=== PATIENT | female | born 1940 | race Caucasian/White ===

== ENCOUNTER → 2017-01-21 | Outpatient (CLI) | payer OTHER, MEDICAID ==
[2015-10-24 20:03] VITALS: BP 148/63
[2017-01-21 08:19] LABS: ALANINE AMINOTRANSFERASE 16 Units/L (12-78); ALBUMIN 3.5 g/dL (3.4-5.0); ALKALINE PHOSPHATASE 121 Units/L (46-116); ASPARTATE AMINO TRANSFERASE 15 Units/L (15-37); BLOOD UREA NITROGEN 23 mg/dL (7-18); CALCIUM 9.3 mg/dL (8.5-10.1); CARBON DIOXIDE 27.9 mmol/L (21-32); CHLORIDE 107 mmol/L (98-107); CREATININE 1.23 mg/dL (0.55-1.02); FREE T4 (FREE THYROXINE) 1.51 ng/dL (0.76-1.46); SODIUM 144 mmol/L (136-145); TOTAL PROTEIN 7.8 g/dL (6.4-8.2); TSH (3RD GENERATION) 0.221 uIU/mL (0.358-3.74); eGFR BLACK RACES 54 (>60); eGFR NON BLACK RACES 45 (>60)
[2017-01-21 08:26] LABS: COR NA(FOR HYPERGLY) 145 mmol/L (136-145); GLUCOSE 129 mg/dL (65-99)
[2017-01-21 08:33] LABS: BASOPHILS % (AUTO) 0.6 % (0.2-1.0); EOSINOPHILS # (AUTO) 0.3 x10^3/uL (0.0-0.2); EOSINOPHILS % (AUTO) 6.6 % (0.9-2.9); HEMATOCRIT 40.7 % (36.0-47.0); HEMOGLOBIN 13.1 g/dL (12.0-16.0); LYMPHOCYTES # (AUTO) 1.3 X10^3/uL (1.3-2.9); LYMPHOCYTES % (AUTO) 25.6 % (21.0-51.0); MEAN CORPUSCULAR HEMOGLOBIN 26.6 pg (27.0-34.0); MEAN CORPUSCULAR HGB CONC 32.2 g/dL (33.0-35.0); MEAN CORPUSCULAR VOLUME 82.6 fL (80.0-100.0); MEAN PLATELET VOLUME 8.2 fL (7.4-11.0); MONOCYTES # (AUTO) 0.4 x10^3/uL (0.3-0.8); MONOCYTES % (AUTO) 7.6 % (0.0-13.0); NEUTROPHILS # (AUTO) 3.1 x10^3/uL (2.2-4.8); NEUTROPHILS % (AUTO) 59.6 % (42.0-75.0); PLATELET COUNT 303 X10^3/uL (150.0-450.0); RED BLOOD COUNT 4.92 X10^6/uL (3.5-5.4); RED CELL DISTRIBUTION WIDTH 14.1 % (11.6-16.5); WHITE BLOOD COUNT 5.1 X10^3/uL (3.6-10.0)
[2017-01-25 10:12] LABS: T3 REVERSE 39.3 ng/dL (9.0-27.0)
== END ==
LOC: LAB 07:33
PROVIDERS: ATTEND Obstetrics & Gynecology Obstetrics
DX: R53.83 Other fatigue (principal); M81.0 Age-related osteoporosis without current pathological fracture
CPT/HCPCS: 36415; 80053; 82306; 82533; 82607; 82746; 84439; 84443; 84481; 84482; 85025

== ENCOUNTER → 2017-04-26 | Outpatient (CLI) | payer OTHER, MEDICAID ==
[2015-10-24 20:03] VITALS: BP 148/63
[2017-04-26 08:16] LABS: BASOPHILS % (AUTO) 0.8 % (0.2-1.0); EOSINOPHILS # (AUTO) 0.4 x10^3/uL (0.0-0.2); EOSINOPHILS % (AUTO) 7.8 % (0.9-2.9); HEMATOCRIT 40.2 % (36.0-47.0); HEMOGLOBIN 12.9 g/dL (12.0-16.0); LYMPHOCYTES # (AUTO) 1.6 X10^3/uL (1.3-2.9); LYMPHOCYTES % (AUTO) 29.2 % (21.0-51.0); MEAN CORPUSCULAR HEMOGLOBIN 25.5 pg (27.0-34.0); MEAN CORPUSCULAR HGB CONC 32.1 g/dL (33.0-35.0); MEAN CORPUSCULAR VOLUME 79.6 fL (80.0-100.0); MEAN PLATELET VOLUME 8.6 fL (7.4-11.0); MONOCYTES # (AUTO) 0.4 x10^3/uL (0.3-0.8); MONOCYTES % (AUTO) 7.9 % (0.0-13.0); NEUTROPHILS # (AUTO) 2.9 x10^3/uL (2.2-4.8); NEUTROPHILS % (AUTO) 54.3 % (42.0-75.0); PLATELET COUNT 260 X10^3/uL (150.0-450.0); RED BLOOD COUNT 5.04 X10^6/uL (3.5-5.4); RED CELL DISTRIBUTION WIDTH 15.1 % (11.6-16.5); WHITE BLOOD COUNT 5.3 X10^3/uL (3.6-10.0)
[2017-04-26 08:40] LABS: ALANINE AMINOTRANSFERASE 16 Units/L (12-78); ALBUMIN 3.7 g/dL (3.4-5.0); ALKALINE PHOSPHATASE 92 Units/L (46-116); ASPARTATE AMINO TRANSFERASE 16 Units/L (15-37); BLOOD UREA NITROGEN 26 mg/dL (7-18); CALCIUM 9.3 mg/dL (8.5-10.1); CARBON DIOXIDE 28.9 mmol/L (21-32); CHLORIDE 105 mmol/L (98-107); CHOL/HDL RATIO 3.7 (0.0-5.0); CHOLESTEROL 146 mg/dL (0-200); CREATININE 1.18 mg/dL (0.55-1.02); GLUCOSE 110 mg/dL (65-99); HDL CHOLESTEROL 40 mg/dL (40-60); SODIUM 142 mmol/L (136-145); TRIGLYCERIDES 161 mg/dL (0-150); TSH (3RD GENERATION) 0.505 uIU/mL (0.358-3.74); eGFR BLACK RACES 57 (>60); eGFR NON BLACK RACES 47 (>60)
[2017-04-26 08:53] LABS: PLATELET MORPHOLOGY COMMENT NORMAL (NORMAL)
[2017-04-26 09:56] LABS: HEMOGLOBIN A1C 5.7 % (4.5-6.2)
== END ==
LOC: LAB 07:23
PROVIDERS: ATTEND Obstetrics & Gynecology Obstetrics
DX: E03.8 Other specified hypothyroidism (principal); E11.9 Type 2 diabetes mellitus without complications; E55.9 Vitamin D deficiency, unspecified; R53.83 Other fatigue
CPT/HCPCS: 36415; 80053; 80061; 82306; 82533; 82607; 83036; 83525; 84443; 85025

== ENCOUNTER → 2017-07-08 | Outpatient (CLI) | payer OTHER, MEDICAID ==
[2015-10-24 20:03] VITALS: BP 148/63
--- NOTE | 2017-07-12 13:39 | MG ---
Examination: Bilateral screening mammogram. Clinical history: Routine screening. Technique: Digital CC and MLO views of both breasts were obtained. Computer aided detection analysis was performed and used during the interpretation. Comparison: 07/06/2016. Findings: The breasts are composed of scattered fibroglandular densities. Benign-appearing calcifications and v ascular calcifications are noted in the breasts bilaterally. A pacemaker/defibrillator device partial ly obscures visualization of the superior portion of the right breast. No suspicious mass, area of architectural distortion or suspicious cluster of microcalcifications is noted. Impression: 1. No mammographic evidence of malignancy. BI-RADS category 2-benign findings. Recommend routine annual screening mammogram. Diagnostic CAD was utilized and reviewed. * 0 (ZERO) - ASSESSMENT INCOMPLETE; ADDITIONAL IMAGING IS NEEDED. * 0C - ASSESSMENT INCOMPLETE, NEEDS ADDITIONAL IMAGING EVALUATION AND/OR PRIOR MAMMOGRAMS FOR COMPARI SON. * 1/1 (ONE) - NEGATIVE. * 2/II (TWO) - BENIGN FINDINGS. * 3/III (THREE) - PROBABLY BENIGN FINDING; SHORT INTERVAL FOLLOW-UP SUGGESTED. * 4/IV (FOUR) - SUSPICIOUS ABNORMALITY; BIOPSY SHOULD BE CONSIDERED. * 5/V - HIGHLY SUSPICIOUS OF MALIGNANCY; BIOPSY SHOULD BE PERFORMED. * 6/IV - KNOWN BIOPSY PROVEN MALIGNANCY-APPROPRIATE ACTION SHOULD BE TAKEN. A NEGATIVE X-RAY REPORT SHOULD NOT DELAY BIOPSY IF A DOMINANT OR CLINICALLY SUSPICIOUS MASS IS PRESENT; 4 TO 8 PERCENT OF CANCERS ARE NOT IDENTIFIED BY X-RAY. A NEGATIVE REPORT MAY REINFORCE THE CLINICAL IMPRESSION. ADENOSIS AND DENSE BREASTS MAY OBSCURE AN UNDERLYING NEOPLASM. Reported By:
== END ==
LOC: RAD 09:57
PROVIDERS: ATTEND Obstetrics & Gynecology Obstetrics
DX: Z12.31 Encounter for screening mammogram for malignant neoplasm of breast (principal)
CPT/HCPCS: 77067

== ENCOUNTER 2017-09-11 13:09 | Emergency (ER) | payer OTHER, MEDICAID ==
[2017-09-11 13:23] VITALS: BMI 23.1
--- NOTE | 2017-09-11 13:47 | DR.GENAD ---
HPI - PCP Primary Care Physician: marshal - HPI Comment HPI Comment: PATIENT HAD VERTIGO WITH THE ROOM SWINGING FOR FEW HOURS. PATIENT HAVE BEING DIZZINESS SINCE YESTERDAY. NO FEVER. SOME CHEST PAIN. HAVE A FIB BUT DENIES PALPITATION. - Complaint/Symptoms Chief Complaint Doctors Comments: INCREASING SOB FOR FEW DAYS AND DIZZINESS TODAY. Chief Complaint:: 'I feel short of breath, at this time I have been sine yesterday and very dizzy" Self Treatment fo Chief Complaint: blood sugar is 107 at this time - Nurses notes reviewed Nurses Notes Review: Yes - Source History Provided: Patient - Mode of Arrival Mode of Arrival: EMS - Timing Onset of Chief Complaint: 09/10/17 Came on: Suddenly - Duration Duration: Constant Duration: Days - Severity Severity: Moderate PMH - PMH Past Medical History: Yes Past Medical History: COPD, Coronary Artery Disease, Diabetes, Dyslipidemia, Hypertension, Hyperthyroidism Past Surgical History: Yes Surgical History: CABG/Valve Surgery, Cholecystectomy, Hysterectomy, Thyroidectomy Past Surgical History Comment: pacemaker - Family History History of Family Medical Conditions: Yes Family Medical History: Diabetes Mellitus, Coronary Artery Disease, Hypertension - Social History Have you used tobacco products in the last 12 months: No Type of Tobacco Use: None Does any household member use tobacco: No Alcohol Use: None Do you use any recreational Drugs:: No Lives With: Family Lives Where: Home - infectious screening In the last 2 months have you had wt loss of >10#?: NO Have you had fever, night sweats or hemotysis?: No Have you traveled outside the country in the last 6 months?: No Isolation: Standard ROS - Review of Systems Constitutional: Weakness, Fatigue. negative: Chills, Fever Eyes: negative: Eye Pain, Discharge ENTM: negative: Ear Pain, Nose Discharge, Nose Congestion, Throat Pain Respiratoy: Short of Breath, Wheezing. negative: Productive Cough, Non- Productive Cough, Hemoptysis Cardiovascular: Chest Pain. negative: Edema Gastrointestinal/Abdominal: No Symptoms Reported Genitourinary: No Symptoms Reported Neurological: No Symptoms Reported Musculoskeletal: Back Pain Integumentary: No Symptoms Reported Hematologic/Lymphatic: No Symptoms Reported All Other Systems: Reviewed and Negative PE - Vital Signs Vitals: Temperature 97 F Pulse Rate [Right Dorsalis 60 Pedis] Pulse Rate 72 Respiratory Rate 19 Blood Pressure [Left Arm] 148/66 Blood Pressure [Right Arm] 148/63 Blood Pressure 198/80 O2 Sat by Pulse Oximetry 96 - General Limitations: No Limitations General Appearance: Alert - Head Head Exam: Normal Inspection - Eyes Eye exam: Normal Appearance - ENT ENT Exam: Normal External Ear Exam External Ear Exam: Normal External Inspection TM/Canal Exam: Bilateral Normal Nose Exam: Normal Nose Exam Mouth Exam: Normal Inspection Throat Exam: Normal Inspection - Neck Neck Exam: Trachea Midline - Chest Chest Inspection: Symmetric Chest Wall Rise - Respiratory Respiratory Exam: Normal Lung Sounds Bilat Respiratory Exam: Bilateral Wheezing, Bilateral Rhonchi, Upper Rhonchi, Lower Wheezing, Lower Rhonchi - Cardiovascular Cardiovascular Exam: Irregular Rhythm - Abdominal Exam Abdominal Exam: Normal Bowel Sounds, Soft. negative: Tenderness - Extremities Extremities Exam: Normal Inspection - Back Back Exam: Normal Inspection - Neurologic Neurological Exam: Alert, Oriented X3 - Psychiatric Psychiatric Exam: Normal Affect, Normal Mood - Skin Skin Exam: Normal Color MDM - Additional Information Additional Information Obtained From: Family - Differential Diagnosis Differential Diagnosis: COPD, CHF OK, PNEMONIA, VERTIGO Course - Treatment Treatment: SEE ORDERS - Consultation Consultation Comments: PATIENT ACCEPTED FOR TRANSFER TO [facility] BY DR. NOVOA. - Education/Counseling Education/Counseling: Patient, Family, Education Educated On: Diagnosis ROR - Labs Reviewed Laboratory Results Reviewed?: Yes Result Diagrams: 09/11/17 14:00 09/11/17 14:00 Laboratory: WBC 5.8 X10^3/uL (3.6-10.0) 09/11/17 14:00 RBC 5.16 X10^6/uL (3.5-5.4) 09/11/17 14:00 Hgb 12.5 g/dL (12.0-16.0) 09/11/17 14:00 Hct 39.1 % (36.0-47.0) 09/11/17 14:00 MCV 75.9 fL (80.0-100.0) L 09/11/17 14:00 MCH 24.3 pg (27.0-34.0) L 09/11/17 14:00 MCHC 32.0 g/dL (33.0-35.0) L 09/11/17 14:00 RDW 16.0 % (11.6-16.5) 09/11/17 14:00 Plt Count 264 X10^3/uL (150.0-450.0) 09/11/17 14:00 MPV 8.1 fL (7.4-11.0) 09/11/17 14:00 Neut % 64.9 % (42.0-75.0) 09/11/17 14:00 Lymph % 21.4 % (21.0-51.0) 09/11/17 14:00 [place] % 7.4 % (0.0-13.0) 09/11/17 14:00 Eos % 5.2 % (0.9-2.9) H 09/11/17 14:00 Baso % 1.1 % (0.2-1.0) H 09/11/17 14:00 Neut # 3.8 x10^3/uL (2.2-4.8) 09/11/17 14:00 Lymph # 1.2 X10^3/uL (1.3-2.9) L 09/11/17 14:00 [place] # 0.4 x10^3/uL (0.3-0.8) 09/11/17 14:00 Eos # 0.3 x10^3/uL (0.0-0.2) H 09/11/17 14:00 Baso # 0.1 X10^3/uL (0.0-0.1) 09/11/17 14:00 Absolute Nucleated RBC 0.0 /100WBC 09/11/17 14:00 Sodium 141 mmol/L (136-145) 09/11/17 14:00 Corrected Sodium 142 mmol/L (136-145) 09/11/17 14:00 Potassium 4.0 mmol/L (3.5-5.1) 09/11/17 14:00 Chloride 106 mmol/L (98-107) 09/11/17 14:00 Carbon Dioxide 26.9 mmol/L (21-32) 09/11/17 14:00 BUN 19 mg/dL (7-18) H 09/11/17 14:00 Creatinine 0.95 mg/dL (0.55-1.02) 09/11/17 14:00 Est GFR (MDRD) Af Amer > 60 (>60) 09/11/17 14:00 Est GFR (MDRD) Non-Af > 60 (>60) 09/11/17 14:00 Glucose 122 mg/dL (65-99) H 09/11/17 14:00 Calcium 9.4 mg/dL (8.5-10.1) 09/11/17 14:00 Corrected Calcium TNP 09/11/17 14:00 Total Bilirubin 0.30 mg/dL (0.2-1.0) 09/11/17 14:00 AST 16 Units/L (15-37) 09/11/17 14:00 ALT 16 Units/L (12-78) 09/11/17 14:00 Alkaline Phosphatase 93 Units/L (46-116) 09/11/17 14:00 Creatine Kinase 36 Units/L (26-192) 09/11/17 16:07 CK-MB (CK-2) < 1.0 ng/mL (0-4.0) 09/11/17 16:07 CK/CKMB % Calc 2.8 % (<4) 09/11/17 16:07 Troponin I 0.07 ng/mL (0-1.5) 09/11/17 16:07 B-Natriuretic Peptide 513 pg/mL (0-79) H* 09/11/17 14:00 Total Protein 7.8 g/dL (6.4-8.2) 09/11/17 14:00 Albumin 3.6 g/dL (3.4-5.0) 09/11/17 14:00 Globulin 4.2 g/dL (2.5-4.5) 09/11/17 14:00 Albumin/Globulin Ratio 0.9 Ratio (1.1-2.1) L 09/11/17 14:00 Specimen Type Clean catch urine 09/11/17 14:42 Urine Color Yellow (YELLOW) 09/11/17 14:42 Urine Appearance Clear (CLEAR) 09/11/17 14:42 Urine pH 7.0 (5.0 - 8.0) 09/11/17 14:42 Ur Specific [place] 1.010 (1.000-1.030) 09/11/17 14:42 Urine Protein 3+ (NEGATIVE) 09/11/17 14:42 Urine Glucose (UA) Negative (NEGATIVE) 09/11/17 14:42 Urine Ketones Negative (NEGATIVE) 09/11/17 14:42 Urine Occult Blood Negative (NEGATIVE) 09/11/17 14:42 Urine Nitrite Negative (NEGATIVE) 09/11/17 14:42 Urine Bilirubin Negative (NEGATIVE) 09/11/17 14:42 Urine Urobilinogen Normal (NORMAL) 09/11/17 14:42 Ur Leukocyte Esterase Negative (NEGATIVE) 09/11/17 14:42 Urine RBC 0-2 /HPF (NEGATIVE) 09/11/17 14:42 Urine WBC 0-2 /HPF (NEGATIVE) 09/11/17 14:42 Ur Squamous Epith Cells Rare /HPF (NEGATIVE) 09/11/17 14:42 Urine Bacteria Trace /HPF (NEGATIVE) 09/11/17 14:42 Ur Culture Indicated? No/not indicated 09/11/17 14:42 - XRAY XRAY Interpreted by: Radiologist XRAY Findings: REPORT DISCUSS WITH PATIENT. 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
--- NOTE | 2017-09-11 14:14 | RAD ---
Examination: Portable AP chest History: SOB Comparison reference to 07/2016 Findings: Continued normal heart size with sternal wires/sternotomy. No consolidation, pneumothorax o r large pleural effusion. Diffuse interstitial increase is noted in each lung, relatively unchanged. Impression: Considering technical difference, no change. Status post CABG. Suspect bilateral chronic interstitial scarring. Reported By:
[2017-09-11 14:15] LABS: BASOPHILS # (AUTO) 0.1 X10^3/uL (0.0-0.1); BASOPHILS % (AUTO) 1.1 % (0.2-1.0); EOSINOPHILS # (AUTO) 0.3 x10^3/uL (0.0-0.2); EOSINOPHILS % (AUTO) 5.2 % (0.9-2.9); HEMATOCRIT 39.1 % (36.0-47.0); HEMOGLOBIN 12.5 g/dL (12.0-16.0); LYMPHOCYTES # (AUTO) 1.2 X10^3/uL (1.3-2.9); LYMPHOCYTES % (AUTO) 21.4 % (21.0-51.0); MEAN CORPUSCULAR HEMOGLOBIN 24.3 pg (27.0-34.0); MEAN CORPUSCULAR VOLUME 75.9 fL (80.0-100.0); MEAN PLATELET VOLUME 8.1 fL (7.4-11.0); MONOCYTES # (AUTO) 0.4 x10^3/uL (0.3-0.8); MONOCYTES % (AUTO) 7.4 % (0.0-13.0); NEUTROPHILS # (AUTO) 3.8 x10^3/uL (2.2-4.8); NEUTROPHILS % (AUTO) 64.9 % (42.0-75.0); PLATELET COUNT 264 X10^3/uL (150.0-450.0); RED BLOOD COUNT 5.16 X10^6/uL (3.5-5.4); WHITE BLOOD COUNT 5.8 X10^3/uL (3.6-10.0)
--- NOTE | 2017-09-11 14:38 | CT ---
HISTORY: Dizziness Study: CT head without contrast Comparison: 11/05/2015 Technique: Axial noncontrast images with coronal and sagittal reformats. Dose reduction procedures we re used with mA/kv adjusted for body size. Findings: The ventricles are normal in size shape and position. There is decreased attenuation in the periventr icular white matter suggestive of diffuse small vessel vascular disease. Age-related cortical atrophy is present. There is an old lacunar infarct in the left thalamus. There is an old lacunar infarct in the left romie. There is an old left occipital infarct present. There is no definite evidence for rec ent CVA, hemorrhage, mass lesion, or extra-axial fluid collection. If acute CVA is a strong clinical consideration MRI with diffusion imaging is recommended for further evaluation. IMPRESSION: No definite acute intracranial abnormality Diffuse small vessel vascular disease Age related cortical atrophy Old CVAs as described Reported By:
[2017-09-11 14:44] LABS: BLOOD UREA NITROGEN 19 mg/dL (7-18); CALCIUM 9.4 mg/dL (8.5-10.1); CARBON DIOXIDE 26.9 mmol/L (21-32); CHLORIDE 106 mmol/L (98-107); COR NA(FOR HYPERGLY) 142 mmol/L (136-145); CREATININE 0.95 mg/dL (0.55-1.02); SODIUM 141 mmol/L (136-145); TROPONIN I 0.06 ng/mL (0-1.5); eGFR BLACK RACES > 60 (>60); eGFR NON BLACK RACES > 60 (>60)
[2017-09-11 14:48] LABS: BILIRUBIN,URINE NEGATIVE (NEGATIVE); BLOOD/HEMOGLOBIN,URINE NEGATIVE (NEGATIVE); GLUCOSE, URINE NEGATIVE (NEGATIVE); KETONES,URINE NEGATIVE (NEGATIVE); LEUKOCYTE ESTERASE ,URINE NEGATIVE (NEGATIVE); NITRITES,URINE NEGATIVE (NEGATIVE); PROTEIN,URINE 3+ (NEGATIVE); UROBILINOGEN,URINE NORMAL (NORMAL)
[2017-09-11 14:51] LABS: ALANINE AMINOTRANSFERASE 16 Units/L (12-78); ALBUMIN 3.6 g/dL (3.4-5.0); ALKALINE PHOSPHATASE 93 Units/L (46-116); ASPARTATE AMINO TRANSFERASE 16 Units/L (15-37); CKMB % 2.6 % (<4); CREATINE KINASE 39 Units/L (26-192); CREATINE KINASE MB < 1.0 ng/mL (0-4.0); TOTAL PROTEIN 7.8 g/dL (6.4-8.2)
[2017-09-11 15:00] LABS: APPEARANCE,URINE CLEAR (CLEAR); BACTERIA,URINE TRACE /HPF (NEGATIVE); COLOR,URINE YELLOW (YELLOW); RBC,URINE 0-2 /HPF (NEGATIVE); SQUAMOUS EPITHELIAL CELL,UR RARE /HPF (NEGATIVE)
[2017-09-11 15:24] LABS: B-TYPE NATRIURETIC PEPTIDE 513 pg/mL (0-79)
[2017-09-11] MEDS ORDERED: ANTIVERT TAB 25 MG PO ONE (15:49)
[2017-09-11] MEDS ORDERED: ANTIVERT TAB 25 MG ONE (15:56)
[2017-09-11 16:27] VITALS: BP 148/66
[2017-09-11 16:51] LABS: CREATINE KINASE 36 Units/L (26-192); CREATINE KINASE MB < 1.0 ng/mL (0-4.0); TROPONIN I 0.07 ng/mL (0-1.5)
[2017-09-11 16:53] LABS: CKMB % 2.8 % (<4)
== END 2017-09-11 19:02 | disposition short-term general hospital (02) ==
LOC: ER 13:13
DX: J40 Bronchitis, not specified as acute or chronic (principal); R42 Dizziness and giddiness; R74.9 Abnormal serum enzyme level, unspecified; I50.41 Acute combined systolic (congestive) and diastolic (congestive) heart failure; R07.2 Precordial pain; G31.9 Degenerative disease of nervous system, unspecified
CPT/HCPCS: 36415; 70450; 71010; 80053; 81001; 82550; 82553; 83880; 84484; 85025; 93005; 93010; 96365; 99285; A4222

== ENCOUNTER → 2017-10-08 | Outpatient (CLI) | payer OTHER, MEDICAID ==
[2017-09-11 16:27] VITALS: BP 148/66
[2017-10-08 10:32] LABS: BASOPHILS # (AUTO) 0.1 X10^3/uL (0.0-0.1); BASOPHILS % (AUTO) 1.2 % (0.2-1.0); EOSINOPHILS # (AUTO) 0.4 x10^3/uL (0.0-0.2); EOSINOPHILS % (AUTO) 8.5 % (0.9-2.9); HEMATOCRIT 40.6 % (36.0-47.0); HEMOGLOBIN 12.8 g/dL (12.0-16.0); LYMPHOCYTES # (AUTO) 1.4 X10^3/uL (1.3-2.9); LYMPHOCYTES % (AUTO) 30.5 % (21.0-51.0); MEAN CORPUSCULAR HEMOGLOBIN 24.4 pg (27.0-34.0); MEAN CORPUSCULAR HGB CONC 31.6 g/dL (33.0-35.0); MEAN CORPUSCULAR VOLUME 77.2 fL (80.0-100.0); MEAN PLATELET VOLUME 7.8 fL (7.4-11.0); MONOCYTES # (AUTO) 0.4 x10^3/uL (0.3-0.8); NEUTROPHILS # (AUTO) 2.3 x10^3/uL (2.2-4.8); NEUTROPHILS % (AUTO) 51.8 % (42.0-75.0); PLATELET COUNT 267 X10^3/uL (150.0-450.0); RED BLOOD COUNT 5.25 X10^6/uL (3.5-5.4); RED CELL DISTRIBUTION WIDTH 16.2 % (11.6-16.5); WHITE BLOOD COUNT 4.5 X10^3/uL (3.6-10.0)
[2017-10-08 10:49] LABS: ANISOCYTOSIS SLIGHT; PLATELET MORPHOLOGY COMMENT NORMAL (NORMAL)
[2017-10-08 10:50] LABS: HYPOCHROMASIA SLIGHT; MICROCYTOSIS SLIGHT
[2017-10-08 10:52] LABS: ALANINE AMINOTRANSFERASE 18 Units/L (12-78); ALBUMIN 3.5 g/dL (3.4-5.0); ALKALINE PHOSPHATASE 88 Units/L (46-116); ASPARTATE AMINO TRANSFERASE 17 Units/L (15-37); BILIRUBIN,DIRECT 0.09 mg/dL (0-0.2); BLOOD UREA NITROGEN 19 mg/dL (7-18); CALCIUM 9.1 mg/dL (8.5-10.1); CARBON DIOXIDE 26.4 mmol/L (21-32); CHLORIDE 106 mmol/L (98-107); CHOLESTEROL 147 mg/dL (0-200); COR NA(FOR HYPERGLY) 143 mmol/L (136-145); CREATININE 0.98 mg/dL (0.55-1.02); HDL CHOLESTEROL 37 mg/dL (40-60); SODIUM 142 mmol/L (136-145); TOTAL PROTEIN 7.8 g/dL (6.4-8.2); TRIGLYCERIDES 198 mg/dL (0-150); eGFR BLACK RACES > 60 (>60); eGFR NON BLACK RACES 58 (>60)
== END ==
LOC: LAB 10:11
PROVIDERS: ATTEND Physician Assistant
DX: I25.10 Atherosclerotic heart disease of native coronary artery without angina pectoris (principal); E78.4 Other hyperlipidemia
CPT/HCPCS: 36415; 80048; 80061; 80076; 85025

== ENCOUNTER 2020-09-09 14:51 | Inpatient (IN) ==
[2020-09-09] MEDS ORDERED: DECADRON INJ IVP ONE (15:02)
--- NOTE | 2020-09-09 15:19 | DR.SOBA ---
HPI <Jay Krishnamurthy - Last Filed: 09/11/20 08:28> Time Seen Time Seen by Provider: 09/09/20 15:02 Complaints Chief Complaint Doctors Comments: pt in resp failure gasping for breath pulse ox 80's she is full code. Exposed to COVID in family getting sick since 09/03/2020 and steadily getting worse Marked dyspnea at rest now sx increase with exertion decrease slightly with rest PMH <Jay Krishnamurthy - Last Filed: 09/11/20 08:28> PMH Past Medical History: Arthritis, Coronary Artery Disease, Diabetes, Dyslipidemia, Hypothyroidism and IA Past Surgical History: Yes Surgical History: Angioplasty/Stents, CABG/Valve Surgery, Cholecystectomy, Hysterectomy and Thyroidectomy Family History Family Medical History: Cancer, [place], Coronary Artery Disease and Hypertension Social History Do you use any recreational Drugs:: No ROS <Jay Krishnamurthy - Last Filed: 09/11/20 08:28> Review of Systems Constitutional: Chills, Diaphoresis, Fever, Malaise, Weakness, Irritable, Fatigue, Loss of Appetite and Other ENTM: No Symptoms Reported Respiratoy: Non-Productive Cough, Short of Breath and Wheezing Cardiovascular: No Symptoms Reported Gastrointestinal/Abdominal: No Symptoms Reported Genitourinary: No Symptoms Reported Neurological: No Symptoms Reported Musculoskeletal: No Symptoms Reported Integumentary: No Symptoms Reported Hematologic/Lymphatic: No Symptoms Reported Endocrine: No Symptoms Reported Psychiatric: No Symptoms Reported All Other Systems: Reviewed and Negative (it should be noted pt with limitesd ability to verbalize secnodary to markked Dyspnea ) PE <Jay Krishnamurthy - Last Filed: 09/11/20 08:28> Vital Signs Vitals: Temperature 97.6 F Pulse Rate 69 Respiratory Rate 31 Blood Pressure [Left Arm] 98/65 Blood Pressure 111/62 O2 Sat by Pulse Oximetry 100 General Limitations: Other (pt with resp failure gasping for breath makes vocalization limited ) General Appearance: Alert and In Distress (respiratory failure) Head Head Exam: Normal Inspection, Atraumatic and Normocephalic Eyes Eye exam: Normal Appearance, PERRL and EOMI ENT ENT Exam: Normal Exam, Normal Oropharynx and Normal External Ear Exam Neck Neck Exam: Normal Inspection, Full ROM and Trachea Midline Chest Chest Inspection: Normal Inspection and Symmetric Chest Wall Rise; negative Tenderness Respiratory Respiratory Exam: Accessory Muscle Use and Other Respiratory Exam: Bilateral: Rhonchi and Bilateral: Decreased Breath Sounds Cardiovascular Cardiovascular Exam: Tachycardia and Irregular Rhythm Abdominal Exam Abdominal Exam: Normal Inspection and Soft; negative Distention and Tenderness Extremities Extremities Exam: Normal Inspection, Full ROM and Normal Capillary Refill; negative Tenderness, Edema and Other Back Back Exam: Normal Inspection and Full ROM; negative Tenderness Neurologic Neurological Exam: Alert Psychiatric Psychiatric Exam: Other (with resp distress appears anxious but not inappropriate ) Skin Skin Exam: Warm, Dry, Intact and Normal Color <Flakita Lozano - Last Filed: 09/10/20 00:47> Vital Signs Vitals: Temperature 97.6 F Pulse Rate 69 Respiratory Rate 31 Blood Pressure [Left Arm] 98/65 Blood Pressure 111/62 O2 Sat by Pulse Oximetry 100 COURSE <Jay Krishnamurthy - Last Filed: 09/11/20 08:28> Reevaluation 1st: Improved (1635h pt on bipap feels much better covid neg +d-dimer but on eliquis so no lovenox will gove lasix 2nd to Chest XR suggesting CHF ) <Flakita Lozano - Last Filed: 09/10/20 00:47> Treatment Treatment: [address] Krishnamurthy; improved on bipap; repeat abg warrants reduction of oxygen 2245 pt doing well with NC Consultation Consultation Comments: Dr Fonseca notified of admission by Dr Krishnamurthy ROR <Jay Krishnamurthy - Last Filed: 09/11/20 08:28> Labs Reviewed Result Diagrams: 09/11/20 05:18 09/11/20 05:18 Laboratory: WBC 11.0 X10^3/uL (3.6-10.0) H 09/09/20 15:25 RBC 5.25 X10^6/uL (3.5-5.4) 09/09/20 15:25 Hgb 15.3 g/dL (12.0-16.0) 09/09/20 15:25 Hct 47.5 % (36.0-47.0) H 09/09/20 15:25 MCV 90.5 fL (80.0-100.0) 09/09/20 15:25 MCH 29.1 pg (27.0-34.0) 09/09/20 15:25 MCHC 32.2 g/dL (33.0-35.0) L 09/09/20 15:25 RDW 15.2 % (11.6-16.5) 09/09/20 15:25 Plt Count 340 X10^3/uL (150.0-450.0) 09/09/20 15:25 MPV 9.7 fL (7.4-11.0) 09/09/20 15:25 Neut % (Auto) 65.3 % (42.0-75.0) 09/09/20 15:25 Lymph % (Auto) 24.4 % (21.0-51.0) 09/09/20 15:25 [place] % (Auto) 7.5 % (0.0-13.0) 09/09/20 15:25 Eos % (Auto) 2.0 % (0.9-2.9) 09/09/20 15:25 Baso % (Auto) 0.8 % (0.2-1.0) 09/09/20 15:25 Neut # (Auto) 7.2 x10^3/uL (2.2-4.8) H 09/09/20 15:25 Lymph # (Auto) 2.7 X10^3/uL (1.3-2.9) 09/09/20 15:25 [place] # (Auto) 0.8 x10^3/uL (0.3-0.8) 09/09/20 15:25 Eos # (Auto) 0.2 x10^3/uL (0.0-0.2) 09/09/20 15:25 Baso # (Auto) 0.1 X10^3/uL (0.0-0.1) 09/09/20 15:25 Absolute Nucleated RBC 0.1 /100WBC 09/09/20 15:25 PT 15.4 SECONDS (11.8-14.3) 09/09/20 15:25 INR Target Range - 09/09/20 15:25 INR 1.26 (0.8-1.3) 09/09/20 15:25 APTT 42.2 SECONDS (22.9-36.5) H 09/09/20 15:25 PTT Comment - 09/09/20 15:25 D-Dimer 0.58 ug/ml (0.0-0.57) H* 09/09/20 15:25 Sample Site Lrad 09/09/20 20:21 ABG pH 7.400 (7.35-7.45) 09/09/20 20:21 ABG pCO2 44.0 mmHg (35.0-45.0) 09/09/20 20:21 ABG pO2 464.0 mmHg (80.0-100.0) H 09/09/20 20:21 ABG HCO3 27.3 mmol/L (22-26) H 09/09/20 20:21 ABG O2 Saturation 100.0 % (90-100) 09/09/20 20:21 ABG Base Excess 2.1 mmol/L (-2.0-2.0) H 09/09/20 20:21 Rodrigo Test Pos 09/09/20 20:21 A-a Gradient 194.0 mmHg 09/09/20 20:21 FiO2 100.0 09/09/20 20:21 Blood Gas Comments Zachery abg well-mtf 09/09/20 20:21 Sodium 139 mmol/L (136-145) 09/09/20 15:25 Corrected Sodium 144 mmol/L (136-145) 09/09/20 15:25 Potassium 5.0 mmol/L (3.5-5.1) 09/09/20 15:25 Chloride 101 mmol/L (98-107) 09/09/20 15:25 Carbon Dioxide 26.4 mmol/L (21-32) 09/09/20 15:25 BUN 22 mg/dL (7-18) H 09/09/20 15:25 Creatinine 1.60 mg/dL (0.55-1.02) H 09/09/20 15:25 Est GFR (MDRD) Af Amer 40 (>60) L 09/09/20 15:25 Est GFR (MDRD) Non-Af 33 (>60) L 09/09/20 15:25 Glucose 290 mg/dL (65-99) H 09/09/20 15:25 Calcium 10.0 mg/dL (8.5-10.1) 09/09/20 15:25 Corrected Calcium 10.6 mg/dL (8.5-10.1) H 09/09/20 15:25 Magnesium 1.5 mg/dL (1.7-2.9) L 09/09/20 15:25 Total Bilirubin 1.00 mg/dL (0.2-1.0) 09/09/20 15:25 AST 57 Units/L (15-37) H 09/09/20 15:25 ALT 45 Units/L (12-78) 09/09/20 15:25 Alkaline Phosphatase 145 Units/L (46-116) H 09/09/20 15:25 Creatine Kinase 37 Units/L (26-192) 09/09/20 15:25 CK-MB (CK-2) < 1.0 ng/mL (0-4.0) 09/09/20 15:25 CK/CKMB % Calc 2.7 % (<4) 09/09/20 15:25 Troponin I 0.08 ng/mL (0-1.5) 09/09/20 15:25 B-Natriuretic Peptide 1570 pg/mL (0-79) H* 09/09/20 15:25 Total Protein 7.8 g/dL (6.4-8.2) 09/09/20 15:25 Albumin 3.3 g/dL (3.4-5.0) L 09/09/20 15:25 Globulin 4.5 g/dL (2.5-4.5) 09/09/20 15:25 Albumin/Globulin Ratio 0.7 Ratio (1.1-2.1) L 09/09/20 15:25 Specimen Type Catherized urine 09/09/20 15:35 Urine Color Yellow (YELLOW) 09/09/20 15:35 Urine Appearance Clear (CLEAR) 09/09/20 15:35 Urine pH 5.0 (5.0 - 8.0) 09/09/20 15:35 Ur Specific [place] 1.015 (1.000-1.030) 09/09/20 15:35 Urine Protein Negative (NEGATIVE) 09/09/20 15:35 Urine Glucose (UA) Negative (NEGATIVE) 09/09/20 15:35 Urine Ketones Negative (NEGATIVE) 09/09/20 15:35 Urine Occult Blood 1+ (NEGATIVE) 09/09/20 15:35 Urine Nitrite Negative (NEGATIVE) 09/09/20 15:35 Urine Bilirubin Negative (NEGATIVE) 09/09/20 15:35 Urine Urobilinogen Normal (NORMAL) 09/09/20 15:35 Ur Leukocyte Esterase Negative (NEGATIVE) 09/09/20 15:35 Urine RBC 0-2 /HPF (0-3) 09/09/20 15:35 Urine WBC 0-2 /HPF (0-5) 09/09/20 15:35 Ur Squamous Epith Cells Moderate /HPF (NEGATIVE) 09/09/20 15:35 Urine Bacteria Trace /HPF (NEGATIVE) 09/09/20 15:35 Ur Culture Indicated? No/not indicated 09/09/20 15:35 SARS CoV-2 RNA Rapid WEI Negative (NEGATIVE) 09/09/20 15:28 <Flakita Lozano - Last Filed: 09/10/20 00:47> Labs Reviewed Laboratory Results Reviewed?: Yes Laboratory: WBC 11.0 X10^3/uL (3.6-10.0) H 09/09/20 15:25 RBC 5.25 X10^6/uL (3.5-5.4) 09/09/20 15:25 Hgb 15.3 g/dL (12.0-16.0) 09/09/20 15:25 Hct 47.5 % (36.0-47.0) H 09/09/20 15:25 MCV 90.5 fL (80.0-100.0) 09/09/20 15:25 MCH 29.1 pg (27.0-34.0) 09/09/20 15:25 MCHC 32.2 g/dL (33.0-35.0) L 09/09/20 15:25 RDW 15.2 % (11.6-16.5) 09/09/20 15:25 Plt Count 340 X10^3/uL (150.0-450.0) 09/09/20 15:25 MPV 9.7 fL (7.4-11.0) 09/09/20 15:25 Neut % (Auto) 65.3 % (42.0-75.0) 09/09/20 15:25 Lymph % (Auto) 24.4 % (21.0-51.0) 09/09/20 15:25 [place] % (Auto) 7.5 % (0.0-13.0) 09/09/20 15:25 Eos % (Auto) 2.0 % (0.9-2.9) 09/09/20 15:25 Baso % (Auto) 0.8 % (0.2-1.0) 09/09/20 15:25 Neut # (Auto) 7.2 x10^3/uL (2.2-4.8) H 09/09/20 15:25 Lymph # (Auto) 2.7 X10^3/uL (1.3-2.9) 09/09/20 15:25 [place] # (Auto) 0.8 x10^3/uL (0.3-0.8) 09/09/20 15:25 Eos # (Auto) 0.2 x10^3/uL (0.0-0.2) 09/09/20 15:25 Baso # (Auto) 0.1 X10^3/uL (0.0-0.1) 09/09/20 15:25 Absolute Nucleated RBC 0.1 /100WBC 09/09/20 15:25 PT 15.4 SECONDS (11.8-14.3) 09/09/20 15:25 INR Target Range - 09/09/20 15:25 INR 1.26 (0.8-1.3) 09/09/20 15:25 APTT 42.2 SECONDS (22.9-36.5) H 09/09/20 15:25 PTT Comment - 09/09/20 15:25 D-Dimer 0.58 ug/ml (0.0-0.57) H* 09/09/20 15:25 Sample Site Lrad 09/09/20 20:21 ABG pH 7.400 (7.35-7.45) 09/09/20 20:21 ABG pCO2 44.0 mmHg (35.0-45.0) 09/09/20 20:21 ABG pO2 464.0 mmHg (80.0-100.0) H 09/09/20 20:21 ABG HCO3 27.3 mmol/L (22-26) H 09/09/20 20:21 ABG O2 Saturation 100.0 % (90-100) 09/09/20 20:21 ABG Base Excess 2.1 mmol/L (-2.0-2.0) H 09/09/20 20:21 Rodrigo Test Pos 09/09/20 20:21 A-a Gradient 194.0 mmHg 09/09/20 20:21 FiO2 100.0 09/09/20 20:21 Blood Gas Comments Zachery abg well-mtf 09/09/20 20:21 Sodium 139 mmol/L (136-145) 09/09/20 15:25 Corrected Sodium 144 mmol/L (136-145) 09/09/20 15:25 Potassium 5.0 mmol/L (3.5-5.1) 09/09/20 15:25 Chloride 101 mmol/L (98-107) 09/09/20 15:25 Carbon Dioxide 26.4 mmol/L (21-32) 09/09/20 15:25 BUN 22 mg/dL (7-18) H 09/09/20 15:25 Creatinine 1.60 mg/dL (0.55-1.02) H 09/09/20 15:25 Est GFR (MDRD) Af Amer 40 (>60) L 09/09/20 15:25 Est GFR (MDRD) Non-Af 33 (>60) L 09/09/20 15:25 Glucose 290 mg/dL (65-99) H 09/09/20 15:25 Calcium 10.0 mg/dL (8.5-10.1) 09/09/20 15:25 Corrected Calcium 10.6 mg/dL (8.5-10.1) H 09/09/20 15:25 Magnesium 1.5 mg/dL (1.7-2.9) L 09/09/20 15:25 Total Bilirubin 1.00 mg/dL (0.2-1.0) 09/09/20 15:25 AST 57 Units/L (15-37) H 09/09/20 15:25 ALT 45 Units/L (12-78) 09/09/20 15:25 Alkaline Phosphatase 145 Units/L (46-116) H 09/09/20 15:25 Creatine Kinase 37 Units/L (26-192) 09/09/20 15:25 CK-MB (CK-2) < 1.0 ng/mL (0-4.0) 09/09/20 15:25 CK/CKMB % Calc 2.7 % (<4) 09/09/20 15:25 Troponin I 0.08 ng/mL (0-1.5) 09/09/20 15:25 B-Natriuretic Peptide 1570 pg/mL (0-79) H* 09/09/20 15:25 Total Protein 7.8 g/dL (6.4-8.2) 09/09/20 15:25 Albumin 3.3 g/dL (3.4-5.0) L 09/09/20 15:25 Globulin 4.5 g/dL (2.5-4.5) 09/09/20 15:25 Albumin/Globulin Ratio 0.7 Ratio (1.1-2.1) L 09/09/20 15:25 Specimen Type Catherized urine 09/09/20 15:35 Urine Color Yellow (YELLOW) 09/09/20 15:35 Urine Appearance Clear (CLEAR) 09/09/20 15:35 Urine pH 5.0 (5.0 - 8.0) 09/09/20 15:35 Ur Specific [place] 1.015 (1.000-1.030) 09/09/20 15:35 Urine Protein Negative (NEGATIVE) 09/09/20 15:35 Urine Glucose (UA) Negative (NEGATIVE) 09/09/20 15:35 Urine Ketones Negative (NEGATIVE) 09/09/20 15:35 Urine Occult Blood 1+ (NEGATIVE) 09/09/20 15:35 Urine Nitrite Negative (NEGATIVE) 09/09/20 15:35 Urine Bilirubin Negative (NEGATIVE) 09/09/20 15:35 Urine Urobilinogen Normal (NORMAL) 09/09/20 15:35 Ur Leukocyte Esterase Negative (NEGATIVE) 09/09/20 15:35 Urine RBC 0-2 /HPF (0-3) 09/09/20 15:35 Urine WBC 0-2 /HPF (0-5) 09/09/20 15:35 Ur Squamous Epith Cells Moderate /HPF (NEGATIVE) 09/09/20 15:35 Urine Bacteria Trace /HPF (NEGATIVE) 09/09/20 15:35 Ur Culture Indicated? No/not indicated 09/09/20 15:35 SARS CoV-2 RNA Rapid WEI Negative (NEGATIVE) 09/09/20 15:28 XRAY XRAY Interpreted by: Radiologist X-ray Results: ct chest: 1. Cardiomegaly and diffuse prominence of the pulmonary vascularity and interstitial markings, with mild groundglass parenchymal infiltrates throughout both lungs, in keeping with mild CHF and/or interstitial pneumonia (e.g. Covid pneumonia) in the appropriate clinical setting. Clinical correlation is advised. 2. Severe coronary and aortic atherosclerosis. 3. Approximately 4.1 cm ascending thoracic aortic aneurysm; no dissection or rupture. 4. Small right posterior inferior pleural effusion with associated subpleural consolidative/compressive right posterior basilar atelectasis. 6. Relatively mild left posterior basilar subpleural atelectasis. 7. Calcified bilateral pleural plaques, which may represent sequela of asbestos related pleural disease in the appropriate clinical setting. Opioid <Jay Krishnamurthy - Last Filed: 09/11/20 08:28> Opioid Risk Tool Age ( box if 16-45): No History of Preadolescent Sexual Abuse: No Total: 0 Total Score Risk Category: Low Risk Copyright: Kiel ROSAS predicting aberrant behaviors <Flakita Lozano - Last Filed: 09/10/20 00:47> Opioid Risk Tool Total: 0 Total Score Risk Category: Low Risk <Jay Krishnamurthy - Last Filed: 09/11/20 08:28> Diagnosis Discharge Problem: Hypoxia, Pneumonia due to virus, COVID-19 determined by clinical diagnostic criteria, Acute respiratory distress, Abdominal aortic aneurysm (AAA) 3.0 cm to 5.0 cm in diameter in female, Cardiomegaly Acute CHF (congestive heart failure) Qualifiers: Heart failure type: unspecified Qualified Code(s): I50.9 - Heart failure, unsp ecified CAD (coronary artery disease) Qualifiers: Coronary Disease-Associated Artery/Lesion type: [place] artery [place] vs. trans planted heart: [place] heart Associated angina: without angina Qualified Code(s): I25.10 - Atherosclerotic heart disease of [place] coronary artery without angina pectoris Instructions Forms: Precautions for COVID19 Patient Portal Social Distancing ADDITIONAL NOTES <Jay Krishnamurthy - Last Filed: 09/11/20 08:28> Additional Notes Additional Notes: CriticAL CARE OVER 30MIN LESS THAN 60 MIN
[2020-09-09] MEDS ORDERED: DECADRON INJ IVP STA (15:23)
[2020-09-09] MEDS ORDERED: ZITHROMAX INJ 500 MG VIAL 500 MG in NS 250 ML IV 250 ML IV SCH (15:23)
[2020-09-09 15:35] VITALS: BMI 28.3
[2020-09-09 15:44] LABS: BILIRUBIN,URINE NEGATIVE (NEGATIVE); BLOOD/HEMOGLOBIN,URINE 1+ (NEGATIVE); GLUCOSE, URINE NEGATIVE (NEGATIVE); KETONES,URINE NEGATIVE (NEGATIVE); LEUKOCYTE ESTERASE ,URINE NEGATIVE (NEGATIVE); NITRITES,URINE NEGATIVE (NEGATIVE); PROTEIN,URINE NEGATIVE (NEGATIVE); UROBILINOGEN,URINE NORMAL (NORMAL)
--- NOTE | 2020-09-09 15:46 | RAD ---
EXAM: CHEST X-RAY HISTORY:TECHNIQUE: AP chest x-ray dated September 09, 2020 at 3:10 PM.COMPARISON: CXR dated May 27, 2020.FINDINGS:There is severe aortic atherosclerosis. There is a right anterior chest wall subclavian cardiac pacer with intact pacer wires to the right atrium and right ventricle. Status post median sternotomy, presumably for CABG.There is evidence for cardiomegaly. The pulmonary vascularity and interstitial markings are diffusely prominent, consistent with moderate to severe CHF or volume overload in the appropriate clinical setting.There is no gross focal lung consolidation, pleural effusion, or pneumothorax seen. The visualized bony structures are within normal limits.IMPRESSION:1. Findings consistent with moderate to severe CHF or volume overload in the appropriate clinical setting (with significant interval progression of infiltrates compared with the previous exam).2. Recommend clinical correlation and appropriate follow up CXR evaluation to ensure clearance as clinically warranted.3. Consider follow up with noncontrast chest CT to rule out concomitant Covid pneumonia if clinically warranted.Electronically signed by: Roselia Gardner (Sep 09, 2020 15:43:24)
[2020-09-09 15:50] LABS: BASOPHILS # (AUTO) 0.1 X10^3/uL (0.0-0.1); BASOPHILS % (AUTO) 0.8 % (0.2-1.0); EOSINOPHILS # (AUTO) 0.2 x10^3/uL (0.0-0.2); HEMATOCRIT 47.5 % (36.0-47.0); HEMOGLOBIN 15.3 g/dL (12.0-16.0); LYMPHOCYTES # (AUTO) 2.7 X10^3/uL (1.3-2.9); LYMPHOCYTES % (AUTO) 24.4 % (21.0-51.0); MEAN CORPUSCULAR HEMOGLOBIN 29.1 pg (27.0-34.0); MEAN CORPUSCULAR HGB CONC 32.2 g/dL (33.0-35.0); MEAN CORPUSCULAR VOLUME 90.5 fL (80.0-100.0); MEAN PLATELET VOLUME 9.7 fL (7.4-11.0); MONOCYTES # (AUTO) 0.8 x10^3/uL (0.3-0.8); MONOCYTES % (AUTO) 7.5 % (0.0-13.0); NEUTROPHILS # (AUTO) 7.2 x10^3/uL (2.2-4.8); NEUTROPHILS % (AUTO) 65.3 % (42.0-75.0); PLATELET COUNT 340 X10^3/uL (150.0-450.0); RED BLOOD COUNT 5.25 X10^6/uL (3.5-5.4); RED CELL DISTRIBUTION WIDTH 15.2 % (11.6-16.5)
[2020-09-09 16:09] LABS: BLOOD UREA NITROGEN 22 mg/dL (7-18); CARBON DIOXIDE 26.4 mmol/L (21-32); CHLORIDE 101 mmol/L (98-107); COR NA(FOR HYPERGLY) 144 mmol/L (136-145); SODIUM 139 mmol/L (136-145); TROPONIN I 0.08 ng/mL (0-1.5); eGFR NON BLACK RACES 33 (>60)
[2020-09-09] MEDS ORDERED: LASIX IVP STA (16:11)
[2020-09-09 16:13] LABS: ALANINE AMINOTRANSFERASE 45 Units/L (12-78); ALBUMIN 3.3 g/dL (3.4-5.0); ALKALINE PHOSPHATASE 145 Units/L (46-116); ASPARTATE AMINO TRANSFERASE 57 Units/L (15-37); CKMB % 2.7 % (<4); COR CA(FOR HYPOALB) 10.6 mg/dL (8.5-10.1); CREATINE KINASE 37 Units/L (26-192); CREATINE KINASE MB < 1.0 ng/mL (0-4.0); MAGNESIUM 1.5 mg/dL (1.7-2.9); TOTAL PROTEIN 7.8 g/dL (6.4-8.2)
[2020-09-09] MEDS ORDERED: LOVENOX INJ 60 MG SYR SC ONE ×2 (16:25→16:35)
[2020-09-09 16:30] LABS: APPEARANCE,URINE CLEAR (CLEAR); COLOR,URINE YELLOW (YELLOW)
[2020-09-09 16:32] LABS: BACTERIA,URINE TRACE /HPF (NEGATIVE); RBC,URINE 0-2 /HPF (0-3); SQUAMOUS EPITHELIAL CELL,UR MODERATE /HPF (NEGATIVE)
[2020-09-09] MEDS ORDERED: LASIX IVP ONE (16:35)
[2020-09-09] MEDS ORDERED: NS 250 ML IV 250 ML IV ONE (16:35)
[2020-09-09] MEDS ORDERED: DECADRON INJ ONE (16:35)
[2020-09-09] MEDS ORDERED: ZITHROMAX INJ 500 MG VIAL IV ONE (16:35)
[2020-09-09] MEDS ORDERED: ROCEPHIN 1 GRAM IV PREMIX 1 G/50 ML IV.SOLN. IV ONE ×2 (16:40→19:47)
[2020-09-09] MEDS: LEVOPHED INJ 8 MG in D5W 250 ML IV 242 ML IV PRN (17:56)
[2020-09-09] MEDS: NS 1000 ML 1,000 ML IV SCH (17:57)
[2020-09-09 20:24] LABS: ABG BASE EXCESS 2.1 mmol/L (-2.0-2.0); ABG HCO3 27.3 mmol/L (22-26)
[2020-09-09 20:25] LABS: ABG ALLEN TEST POS
--- NOTE | 2020-09-09 20:28 | CT ---
EXAM: CHEST CT WITHOUT INTRAVENOUS CONTRASTHISTORY: Shortness of breath. Nausea and vomiting. Rule out Covid pneumonia.TECHNIQUE: Spiral axial CT images are obtained through the chest without the administration of intravenous contrast. Additional sagittal and coronal reformatted images are reconstructed.DOSIMETRY: Total DLP 310.5 mGycm; CTDI 8.1 mGyCOMPARISON: None available.FINDINGS:CARDIOVASCULAR: There is severe coronary and aortic atherosclerosis. There is approximately 4.1 cm ascending thoracic aortic aneurysm; no rupture. There is mild to moderate cardiomegaly with four-chamber enlargement. No pericardial effusion is seen. There is a right anterior chest wall subclavian cardiac pacer with intact pacer wires to the right atrium and right ventricle.MEDIASTINUM AND YENY: There is an approximately 1.7 cm x 1.5 cm pretracheal/retrovascular window lymph node in keeping with reactive lymphadenopathy. No mass lesion or abnormal fluid collection is seen.LUNGS: There is diffuse prominence of the pulmonary vascularity and interstitial markings, with mild groundglass parenchymal infiltrates throughout both lungs, in keeping with mild CHF and/or interstitial pneumonia (e.g. Covid pneumonia) in the appropriate clinical setting. Clinical correlation is advised. There is a small right posterior inferior pleural effusion with associated subpleural consolidative/compressive right posterior basilar atelectasis. There is relatively mild left posterior basilar subpleural atelectasis. There calcified bilateral pleural plaques, which may represent sequela of asbestos related pleural disease in the appropriate clinical setting.CHEST WALL: There are no chest wall lesions seen. The visualized bony structures are within normal limits. No axillary lymphadenopathy is noted.UPPER ABDOMEN: Limited views through the upper abdomen demonstrate no gross acute abnormality. Status post cholecystectomy.Note: Limited/suboptimal exam without IV contrast administration. Note that small or subtle post vascular pathology can be obscured in this radiologic setting. Consider followup evaluation with postcontrast CT for optimal assessment as clinically warranted.IMPRESSION:1. Cardiomegaly and diffuse prominence of the pulmonary vascularity and interstitial markings, with mild groundglass parenchymal infiltrates throughout both lungs, in keeping with mild CHF and/or interstitial pneumonia (e.g. Covid pneumonia) in the appropriate clinical setting. Clinical correlation is advised.2. Severe coronary and aortic atherosclerosis.3. Approximately 4.1 cm ascending thoracic aortic aneurysm; no dissection or rupture.4. Small right posterior inferior pleural effusion with associated subpleural consolidative/compressive right posterior basilar atelectasis.6. Relatively mild left posterior basilar subpleural atelectasis.7. Calcified bilateral pleural plaques, which may represent sequela of asbestos related pleural disease in the appropriate clinical setting.Electronically signed by: Roselia Gardner (Sep 09, 2020 20:27:01)
[2020-09-10] MEDS ORDERED: HumuLIN R SUBCUT PRN (00:06)
[2020-09-10] MEDS ORDERED: ROCEPHIN VIAL 1 GRAM 1 G in NS 100 ML IV + SPIKE MINIBAG* 100 ML IV SCH (00:08)
[2020-09-10] MEDS ORDERED: ROCEPHIN VIAL 1 GRAM ONE (00:38)
[2020-09-10] MEDS ORDERED: NS 100 ML IV + SPIKE MINIBAG* 100 ML IV ONE (00:39)
[2020-09-10] MEDS ORDERED: ZITHROMAX INJ 500 MG VIAL IV ONE (00:39)
[2020-09-10] MEDS ORDERED: NS 250 ML IV 0 ML IV ONE (00:39)
[2020-09-10] MEDS: ZITHROMAX INJ 500 MG VIAL 500 MG in NS 250 ML IV 250 ML IV SCH ×2 (00:41→02:02)
[2020-09-10] MEDS ORDERED: LEVOPHED INJ ONE (05:39)
[2020-09-10] MEDS ORDERED: NS 250 ML IV 250 ML IV ONE (05:39)
[2020-09-10] MEDS ORDERED: D5W 250 ML IV 250 ML IV ONE (05:47)
[2020-09-10] MEDS: LEVOPHED INJ 8 MG in D5W 250 ML IV 242 ML IV PRN (05:55)
[2020-09-10 06:14] LABS: BASOPHILS % (AUTO) 0.3 % (0.2-1.0); HEMOGLOBIN 14.4 g/dL (12.0-16.0); LYMPHOCYTES # (AUTO) 1.6 X10^3/uL (1.3-2.9); MEAN CORPUSCULAR HGB CONC 32.8 g/dL (33.0-35.0); MEAN CORPUSCULAR VOLUME 88.6 fL (80.0-100.0); MONOCYTES # (AUTO) 0.8 x10^3/uL (0.3-0.8); MONOCYTES % (AUTO) 7.9 % (0.0-13.0); NEUTROPHILS # (AUTO) 7.1 x10^3/uL (2.2-4.8); NEUTROPHILS % (AUTO) 74.8 % (42.0-75.0); PLATELET COUNT 350 X10^3/uL (150.0-450.0); RED BLOOD COUNT 4.96 X10^6/uL (3.5-5.4); WHITE BLOOD COUNT 9.5 X10^3/uL (3.6-10.0)
[2020-09-10 06:36] LABS: ALBUMIN 3.1 g/dL (3.4-5.0); CALCIUM 9.2 mg/dL (8.5-10.1); CARBON DIOXIDE 25.3 mmol/L (21-32); COR CA(FOR HYPOALB) 9.9 mg/dL (8.5-10.1); CREATININE 1.59 mg/dL (0.55-1.02); TOTAL PROTEIN 7.6 g/dL (6.4-8.2)
[2020-09-10] MEDS ORDERED: PEPCID TAB 20 MG ONE (08:35)
[2020-09-10] MEDS ORDERED: DECADRON TAB PO SCH (09:00)
[2020-09-10] MEDS ORDERED: VITAMIN D (1.25MG) PO SCH (09:00)
[2020-09-10] MEDS ORDERED: LOVENOX INJ 30 MG SYR SC SCH (09:00)
[2020-09-10] MEDS: ZINC SULFATE PO SCH ×2 (09:09→21:42)
[2020-09-10] MEDS: PEPCID TAB 20 MG PO SCH ×2 (09:10→21:42)
[2020-09-10] MEDS: NS 1000 ML 1,000 ML IV SCH ×4 (09:11→18:29)
[2020-09-10] MEDS ORDERED: ZESTRIL TAB 5 MG ONE (10:14)
[2020-09-10] MEDS ORDERED: PLAVIX ONE (10:14)
[2020-09-10] MEDS: ZESTRIL TAB 5 MG PO SCH ×2 (10:15→10:35)
[2020-09-10] MEDS: COREG TAB 12.5 MG PO SCH ×2 (10:16→10:33)
[2020-09-10] MEDS: CORDARONE TAB 200 MG PO SCH (10:16)
[2020-09-10] MEDS: FOLIC ACID TAB 1 MG PO SCH (10:17)
[2020-09-10] MEDS: ULORIC PO SCH (10:17)
[2020-09-10] MEDS: PLAVIX PO SCH (10:18)
[2020-09-10] MEDS ORDERED: ZOFRAN INJ 4 MG VIAL ONE (10:32)
[2020-09-10] MEDS ORDERED: ZOFRAN INJ 4 MG VIAL IVP PRN (10:39)
[2020-09-10] MEDS: ELIQUIS PO SCH (21:42)
[2020-09-10] MEDS: TRICOR TAB 145 MG PO SCH (21:42)
[2020-09-11] MEDS ORDERED: ZITHROMAX INJ 500 MG VIAL 500 MG in NS 250 ML IV 250 ML IV SCH ×2
[2020-09-11] MEDS ORDERED: ROCEPHIN VIAL 1 GRAM 1 G in NS 100 ML IV + SPIKE MINIBAG* 100 ML IV SCH ×2
[2020-09-11] MEDS: NS 1000 ML 1,000 ML IV SCH ×3 (03:18→18:20)
[2020-09-11 06:09] LABS: BASOPHILS % (AUTO) 0.3 % (0.2-1.0); EOSINOPHILS % (AUTO) 0.1 % (0.9-2.9); HEMATOCRIT 39.2 % (36.0-47.0); HEMOGLOBIN 12.5 g/dL (12.0-16.0); LYMPHOCYTES # (AUTO) 1.3 X10^3/uL (1.3-2.9); LYMPHOCYTES % (AUTO) 18.8 % (21.0-51.0); MEAN CORPUSCULAR HEMOGLOBIN 28.4 pg (27.0-34.0); MEAN CORPUSCULAR HGB CONC 31.9 g/dL (33.0-35.0); MEAN PLATELET VOLUME 9.1 fL (7.4-11.0); MONOCYTES # (AUTO) 0.7 x10^3/uL (0.3-0.8); MONOCYTES % (AUTO) 9.4 % (0.0-13.0); NEUTROPHILS % (AUTO) 71.4 % (42.0-75.0); PLATELET COUNT 161 X10^3/uL (150.0-450.0); RED BLOOD COUNT 4.41 X10^6/uL (3.5-5.4); RED CELL DISTRIBUTION WIDTH 14.8 % (11.6-16.5)
[2020-09-11 06:29] LABS: ALANINE AMINOTRANSFERASE 35 Units/L (12-78); ALBUMIN 2.6 g/dL (3.4-5.0); ALKALINE PHOSPHATASE 97 Units/L (46-116); ASPARTATE AMINO TRANSFERASE 35 Units/L (15-37); BLOOD UREA NITROGEN 28 mg/dL (7-18); CALCIUM 8.5 mg/dL (8.5-10.1); CHLORIDE 105 mmol/L (98-107); COR CA(FOR HYPOALB) 9.6 mg/dL (8.5-10.1); CREATININE 1.18 mg/dL (0.55-1.02); MAGNESIUM 1.4 mg/dL (1.7-2.9); SODIUM 141 mmol/L (136-145); TOTAL PROTEIN 6.3 g/dL (6.4-8.2); eGFR NON BLACK RACES 47 (>60)
[2020-09-11 07:46] LABS: PLATELET MORPHOLOGY COMMENT NORMAL (NORMAL)
[2020-09-11] MEDS: ZINC SULFATE PO SCH ×2 (08:16→20:48)
[2020-09-11] MEDS: PEPCID TAB 20 MG PO SCH ×2 (08:16→20:48)
[2020-09-11] MEDS: FOLIC ACID TAB 1 MG PO SCH (08:16)
[2020-09-11] MEDS: PLAVIX PO SCH (08:17)
[2020-09-11] MEDS: CORDARONE TAB 200 MG PO SCH (08:18)
[2020-09-11] MEDS: ELIQUIS PO SCH ×2 (08:19→20:48)
[2020-09-11] MEDS: COREG TAB 3.125 MG PO SCH ×2 (09:36→20:48)
[2020-09-11] MEDS: MAGNESIUM SULFATE 1 GRAM/100 mL PREMIX 2 G/200 ML BAG IV SCH ×2 (09:39→10:45)
[2020-09-11] MEDS: ULORIC PO SCH (10:08)
[2020-09-11] MEDS: LASIX PO SCH (13:39)
[2020-09-11] MEDS: TRICOR TAB 145 MG PO SCH (20:48)
[2020-09-12] MEDS: LASIX PO SCH ×2 (01:45→12:28)
[2020-09-12 02:00] LABS: CKMB % 4.4 % (<4); CREATINE KINASE 23 Units/L (26-192); CREATINE KINASE MB < 1.0 ng/mL (0-4.0); TROPONIN I 0.08 ng/mL (0-1.5)
--- NOTE | 2020-09-12 04:10 | RAD ---
HISTORYPT C/O ACTIVE CHEST PAIN TO LEFT SIDE OF CHESTSTUDYCHEST, 1 [id number]/28/2020FINDINGSThe trachea is midline. Permanent pacing device. Changes of prior CABG surgery. The cardiac silhouette is enlarged.. Bilateral interstitial infiltrates and/or edema unchanged. No pleural effusions.. The bony thorax is unremarkable.IMPRESSIONCardiomegalyBilateral interstitial infiltrates and/or edema unchanged from 09/09/2020Electronically signed by: Sudeep Cabello (Sep 12, 2020 04:08:32)
[2020-09-12 06:51] LABS: BASOPHILS % (AUTO) 0.5 % (0.2-1.0); EOSINOPHILS % (AUTO) 0.4 % (0.9-2.9); HEMATOCRIT 39.7 % (36.0-47.0); HEMOGLOBIN 12.7 g/dL (12.0-16.0); LYMPHOCYTES # (AUTO) 0.8 X10^3/uL (1.3-2.9); LYMPHOCYTES % (AUTO) 12.1 % (21.0-51.0); MEAN CORPUSCULAR HEMOGLOBIN 28.6 pg (27.0-34.0); MEAN CORPUSCULAR VOLUME 89.3 fL (80.0-100.0); MEAN PLATELET VOLUME 9.1 fL (7.4-11.0); MONOCYTES # (AUTO) 0.8 x10^3/uL (0.3-0.8); MONOCYTES % (AUTO) 11.5 % (0.0-13.0); NEUTROPHILS # (AUTO) 5.2 x10^3/uL (2.2-4.8); NEUTROPHILS % (AUTO) 75.5 % (42.0-75.0); PLATELET COUNT 153 X10^3/uL (150.0-450.0); RED BLOOD COUNT 4.45 X10^6/uL (3.5-5.4); RED CELL DISTRIBUTION WIDTH 14.6 % (11.6-16.5); WHITE BLOOD COUNT 6.9 X10^3/uL (3.6-10.0)
[2020-09-12 07:18] LABS: ALANINE AMINOTRANSFERASE 37 Units/L (12-78); ALBUMIN 2.6 g/dL (3.4-5.0); ALKALINE PHOSPHATASE 116 Units/L (46-116); ASPARTATE AMINO TRANSFERASE 32 Units/L (15-37); BLOOD UREA NITROGEN 26 mg/dL (7-18); CALCIUM 8.6 mg/dL (8.5-10.1); CARBON DIOXIDE 29.6 mmol/L (21-32); CHLORIDE 102 mmol/L (98-107); COR CA(FOR HYPOALB) 9.7 mg/dL (8.5-10.1); COR NA(FOR HYPERGLY) 141 mmol/L (136-145); CREATININE 1.03 mg/dL (0.55-1.02); SODIUM 140 mmol/L (136-145); TOTAL PROTEIN 6.6 g/dL (6.4-8.2); eGFR NON BLACK RACES 55 (>60)
[2020-09-12] MEDS: CORDARONE TAB 200 MG PO SCH (08:57)
[2020-09-12] MEDS: ELIQUIS PO SCH ×2 (08:58→21:45)
[2020-09-12] MEDS: FOLIC ACID TAB 1 MG PO SCH (08:58)
[2020-09-12] MEDS: COREG TAB 6.25 MG PO SCH ×2 (08:58→21:35)
[2020-09-12] MEDS: PEPCID TAB 20 MG PO SCH ×2 (08:58→21:40)
[2020-09-12] MEDS: ULORIC PO SCH (08:59)
[2020-09-12] MEDS: ZINC SULFATE PO SCH ×2 (08:59→21:40)
[2020-09-12] MEDS: PLAVIX PO SCH (08:59)
[2020-09-12] MEDS: NS 1000 ML 1,000 ML IV SCH ×4 (09:01→18:03)
[2020-09-12] MEDS: VITAMIN A PO SCH (11:39)
[2020-09-12] MEDS: TRICOR TAB 145 MG PO SCH (21:45)
[2020-09-13] MEDS: NS 1000 ML 1,000 ML IV SCH ×4 (03:47→20:04)
[2020-09-13] MEDS: CORDARONE TAB 200 MG PO SCH (09:12)
[2020-09-13] MEDS: COREG TAB 6.25 MG PO SCH ×2 (09:14→22:00)
[2020-09-13] MEDS: ELIQUIS PO SCH ×2 (09:15→22:00)
[2020-09-13] MEDS: FOLIC ACID TAB 1 MG PO SCH (09:17)
[2020-09-13] MEDS: PLAVIX PO SCH (09:18)
[2020-09-13] MEDS: PEPCID TAB 20 MG PO SCH ×2 (09:18→22:00)
[2020-09-13] MEDS: LASIX PO SCH (09:18)
[2020-09-13] MEDS: ULORIC PO SCH (09:19)
[2020-09-13] MEDS: ZINC SULFATE PO SCH ×2 (10:00→22:00)
[2020-09-13] MEDS: VITAMIN A PO SCH (10:00)
[2020-09-13] MEDS: ZESTRIL TAB 5 MG PO SCH (12:00)
[2020-09-13] MEDS: TRICOR TAB 145 MG PO SCH (22:00)
--- NOTE | 2020-09-14 05:46 | RAD ---
HISTORYRespiratory distress pneumoniaSTUDYAP [id number]/31/2020FINDINGSStable cardiomegaly and no change in pacemaker position. Oral pulmonary infiltrates again noted with suggestion of increasing airspace opacity in the right base, partly obscured by the enlarged heart and patient rotation.IMPRESSIONPersistent cardiomegaly and bilateral infiltrates/pneumonia. Suspect increasing consolidation/atelectasis in the partly obscured right lower lobe.Electronically signed by: IFEOMA GIVENS (Sep 14, 2020 05:44:50)
[2020-09-14 06:35] LABS: BASOPHILS % (AUTO) 1.2 % (0.2-1.0); EOSINOPHILS # (AUTO) 0.1 x10^3/uL (0.0-0.2); EOSINOPHILS % (AUTO) 2.9 % (0.9-2.9); HEMATOCRIT 35.6 % (36.0-47.0); HEMOGLOBIN 11.7 g/dL (12.0-16.0); LYMPHOCYTES # (AUTO) 0.6 X10^3/uL (1.3-2.9); LYMPHOCYTES % (AUTO) 16.3 % (21.0-51.0); MEAN CORPUSCULAR HEMOGLOBIN 29.4 pg (27.0-34.0); MEAN CORPUSCULAR HGB CONC 32.8 g/dL (33.0-35.0); MEAN CORPUSCULAR VOLUME 89.7 fL (80.0-100.0); MEAN PLATELET VOLUME 8.6 fL (7.4-11.0); MONOCYTES # (AUTO) 0.4 x10^3/uL (0.3-0.8); MONOCYTES % (AUTO) 9.7 % (0.0-13.0); NEUTROPHILS # (AUTO) 2.7 x10^3/uL (2.2-4.8); NEUTROPHILS % (AUTO) 69.9 % (42.0-75.0); PLATELET COUNT 132 X10^3/uL (150.0-450.0); RED BLOOD COUNT 3.97 X10^6/uL (3.5-5.4); RED CELL DISTRIBUTION WIDTH 14.2 % (11.6-16.5); WHITE BLOOD COUNT 3.9 X10^3/uL (3.6-10.0)
[2020-09-14 06:39] LABS: ALANINE AMINOTRANSFERASE 22 Units/L (12-78); ALBUMIN 2.1 g/dL (3.4-5.0); ALKALINE PHOSPHATASE 105 Units/L (46-116); ASPARTATE AMINO TRANSFERASE 23 Units/L (15-37); BLOOD UREA NITROGEN 19 mg/dL (7-18); CALCIUM 8.2 mg/dL (8.5-10.1); CARBON DIOXIDE 33.5 mmol/L (21-32); CHLORIDE 104 mmol/L (98-107); COR CA(FOR HYPOALB) 9.7 mg/dL (8.5-10.1); CREATININE 0.79 mg/dL (0.55-1.02); SODIUM 142 mmol/L (136-145); TOTAL PROTEIN 5.9 g/dL (6.4-8.2); eGFR NON BLACK RACES > 60 (>60)
[2020-09-14] MEDS: CORDARONE TAB 200 MG PO SCH (08:50)
[2020-09-14] MEDS: LASIX PO SCH (08:50)
[2020-09-14] MEDS: COREG TAB 6.25 MG PO SCH ×2 (08:53→22:11)
[2020-09-14] MEDS: PEPCID TAB 20 MG PO SCH ×2 (08:54→22:35)
[2020-09-14] MEDS: ELIQUIS PO SCH ×2 (08:54→22:11)
[2020-09-14] MEDS: FOLIC ACID TAB 1 MG PO SCH (08:54)
[2020-09-14] MEDS: ZESTRIL TAB 5 MG PO SCH (08:55)
[2020-09-14] MEDS: PLAVIX PO SCH (08:55)
[2020-09-14] MEDS: ZINC SULFATE PO SCH ×2 (08:55→22:12)
[2020-09-14] MEDS: NS 1000 ML 1,000 ML IV SCH ×2 (08:56→10:30)
[2020-09-14] MEDS: VITAMIN A PO SCH (10:00)
[2020-09-14] MEDS: ALBUMIN HUMAN 25%- 100 ML 100 ML IV SCH (11:33)
[2020-09-14] MEDS: LASIX IVP SCH ×2 (11:33→18:00)
[2020-09-14] MEDS: ULORIC PO SCH (12:52)
[2020-09-14] MEDS: TRICOR TAB 145 MG PO SCH (22:12)
[2020-09-14] MEDS ORDERED: PEPCID TAB 20 MG ONE (22:17)
[2020-09-15 06:46] LABS: BASOPHILS % (AUTO) 0.8 % (0.2-1.0); EOSINOPHILS # (AUTO) 0.1 x10^3/uL (0.0-0.2); EOSINOPHILS % (AUTO) 3.4 % (0.9-2.9); HEMATOCRIT 34.7 % (36.0-47.0); HEMOGLOBIN 11.1 g/dL (12.0-16.0); LYMPHOCYTES # (AUTO) 0.6 X10^3/uL (1.3-2.9); LYMPHOCYTES % (AUTO) 17.9 % (21.0-51.0); MEAN CORPUSCULAR HEMOGLOBIN 28.9 pg (27.0-34.0); MEAN CORPUSCULAR VOLUME 90.4 fL (80.0-100.0); MEAN PLATELET VOLUME 10.2 fL (7.4-11.0); MONOCYTES # (AUTO) 0.4 x10^3/uL (0.3-0.8); MONOCYTES % (AUTO) 10.4 % (0.0-13.0); NEUTROPHILS # (AUTO) 2.4 x10^3/uL (2.2-4.8); NEUTROPHILS % (AUTO) 67.5 % (42.0-75.0); PLATELET COUNT 144 X10^3/uL (150.0-450.0); RED BLOOD COUNT 3.84 X10^6/uL (3.5-5.4); RED CELL DISTRIBUTION WIDTH 14.1 % (11.6-16.5); WHITE BLOOD COUNT 3.6 X10^3/uL (3.6-10.0)
[2020-09-15 07:01] LABS: ALANINE AMINOTRANSFERASE 20 Units/L (12-78); ALBUMIN 2.6 g/dL (3.4-5.0); ALKALINE PHOSPHATASE 95 Units/L (46-116); ASPARTATE AMINO TRANSFERASE 22 Units/L (15-37); BLOOD UREA NITROGEN 17 mg/dL (7-18); CALCIUM 8.3 mg/dL (8.5-10.1); CARBON DIOXIDE 38.5 mmol/L (21-32); CHLORIDE 102 mmol/L (98-107); COR CA(FOR HYPOALB) 9.4 mg/dL (8.5-10.1); CREATININE 0.87 mg/dL (0.55-1.02); SODIUM 145 mmol/L (136-145); TOTAL PROTEIN 5.9 g/dL (6.4-8.2); eGFR NON BLACK RACES > 60 (>60)
[2020-09-15] MEDS ORDERED: POTASSIUM CHLORIDE LIQ 20 MEQ UDC PO PRN (08:02)
[2020-09-15] MEDS ORDERED: MICRO K EXTEN CAP 10 MEQ PO PRN (08:02)
[2020-09-15] MEDS ORDERED: POTASSIUM CHL 60 MEQ/NS 0.45% 500 ML IV PRN (08:02)
[2020-09-15] MEDS ORDERED: KLOR-CON PO PRN (08:02)
[2020-09-15] MEDS ORDERED: POTASSIUM CHL 40 MEQ/NS 0.45% 500 ML IV PRN (08:02)
[2020-09-15] MEDS ORDERED: K-RIDER 10 MEQ/NS 100 ML 10 MEQ/100 ML BAG IV PRN (08:02)
[2020-09-15] MEDS ORDERED: K-DUR TAB 20 MEQ PO PRN (08:02)
[2020-09-15] MEDS ORDERED: MAGNESIUM SULFATE 1 GRAM/100 mL PREMIX 1 G/100 ML BAG IV ONE (08:41)
[2020-09-15] MEDS: CORDARONE TAB 200 MG PO SCH (09:58)
[2020-09-15] MEDS: COREG TAB 6.25 MG PO SCH ×2 (09:59→21:00)
[2020-09-15] MEDS: ZINC SULFATE PO SCH ×2 (09:59→21:00)
[2020-09-15] MEDS: ELIQUIS PO SCH ×2 (10:01→21:00)
[2020-09-15] MEDS: FOLIC ACID TAB 1 MG PO SCH (10:02)
[2020-09-15] MEDS: PLAVIX PO SCH (10:02)
[2020-09-15] MEDS: ZESTRIL TAB 5 MG PO SCH (10:03)
[2020-09-15] MEDS: LASIX IVP SCH ×2 (10:28→17:38)
[2020-09-15] MEDS: ULORIC PO SCH (10:33)
[2020-09-15] MEDS ORDERED: POTASSIUM CHLORIDE IV ONE ×2 (11:00)
[2020-09-15] MEDS ORDERED: NS IV ONE ×2 (11:00)
[2020-09-15] MEDS: ALBUMIN HUMAN 25%- 100 ML 100 ML IV SCH (12:00)
[2020-09-15] MEDS: PEPCID TAB 20 MG PO SCH ×2 (13:32→23:30)
[2020-09-15] MEDS: MAGNESIUM SULFATE 1 GRAM/100 mL PREMIX 1 GM/100 ML BAG IV PRN ×3 (13:37→18:07)
[2020-09-15] MEDS: VITAMIN A PO SCH (13:40)
[2020-09-15] MEDS: TRICOR TAB 145 MG PO SCH (21:00)
[2020-09-15] MEDS ORDERED: RESTORIL CAP 15 MG PO PRN (23:36)
[2020-09-16 07:16] LABS: BASOPHILS % (AUTO) 0.5 % (0.2-1.0); EOSINOPHILS # (AUTO) 0.1 x10^3/uL (0.0-0.2); EOSINOPHILS % (AUTO) 1.2 % (0.9-2.9); HEMATOCRIT 36.4 % (36.0-47.0); LYMPHOCYTES # (AUTO) 0.7 X10^3/uL (1.3-2.9); LYMPHOCYTES % (AUTO) 11.5 % (21.0-51.0); MEAN CORPUSCULAR HEMOGLOBIN 29.5 pg (27.0-34.0); MEAN CORPUSCULAR HGB CONC 32.9 g/dL (33.0-35.0); MEAN CORPUSCULAR VOLUME 89.6 fL (80.0-100.0); MEAN PLATELET VOLUME 9.6 fL (7.4-11.0); MONOCYTES # (AUTO) 0.7 x10^3/uL (0.3-0.8); MONOCYTES % (AUTO) 11.6 % (0.0-13.0); NEUTROPHILS # (AUTO) 4.4 x10^3/uL (2.2-4.8); NEUTROPHILS % (AUTO) 75.2 % (42.0-75.0); PLATELET COUNT 188 X10^3/uL (150.0-450.0); RED BLOOD COUNT 4.07 X10^6/uL (3.5-5.4); RED CELL DISTRIBUTION WIDTH 14.3 % (11.6-16.5); WHITE BLOOD COUNT 5.9 X10^3/uL (3.6-10.0)
[2020-09-16 07:33] LABS: ALANINE AMINOTRANSFERASE 13 Units/L (12-78); ALBUMIN 3.1 g/dL (3.4-5.0); ALKALINE PHOSPHATASE 101 Units/L (46-116); ASPARTATE AMINO TRANSFERASE 26 Units/L (15-37); BLOOD UREA NITROGEN 18 mg/dL (7-18); CALCIUM 9.2 mg/dL (8.5-10.1); CARBON DIOXIDE 37.5 mmol/L (21-32); CHLORIDE 98 mmol/L (98-107); COR CA(FOR HYPOALB) 9.9 mg/dL (8.5-10.1); COR NA(FOR HYPERGLY) 141 mmol/L (136-145); CREATININE 0.82 mg/dL (0.55-1.02); SODIUM 141 mmol/L (136-145); TOTAL PROTEIN 6.6 g/dL (6.4-8.2); eGFR NON BLACK RACES > 60 (>60)
--- NOTE | 2020-09-16 07:53 | RAD ---
HISTORYRESPIRATORY DISTRESS, CHFSTUDYCHEST, 1 [id number]/02/2021FINDINGSSmall left effusion is stable. Abnormal opacity in the lungs is stable. This is diffuse with more focal areas of opacity and could be pulmonary edema or pneumonia. No pneumothorax.Heart size probably large. Vascular calcifications are present compatible with atherosclerosis.Bones are unremarkable.Right subclavian ICD is present with leads in expected location. EKG leads are noted. Median sternotomy wires are present.IMPRESSION1. Unchanged pneumonia or pulmonary edema2. Stable left effusionElectronically signed by: Van Lozano (Sep 16, 2020 07:52:09)
--- NOTE | 2020-09-16 08:02 | RAD ---
HISTORYCHFSTUDYCHEST x-ray, 1 VIEWCOMPARISONX-ray 09/15/2020FINDINGSPatient is rotated to the right. Persistent cardiomegaly is seen. There is probable mild aneurysm formation of the aortic arch and tortuosity of the descending thoracic aorta. Diffuse lung infiltrates are seen that are probably a combination of pneumonia and pulmonary edema. Moderate left-sided and small right-sided pleural effusions are seen. Pacemaker leads are unchanged in position. No pneumothorax is seen.IMPRESSIONCardiomegaly and possible CHF. Pleural effusions are seen, similar to prior study. Persistent bilateral lung infiltrates may be a combination of pneumonia and pulmonary edema.Electronically signed by: Rudolph Marks (Sep 16, 2020 08:00:26)
[2020-09-16] MEDS ORDERED: NORCO 7.5/325 MG TAB PO PRN (08:29)
[2020-09-16] MEDS ORDERED: ATIVAN INJ 2 MG VIAL IVP ONE (09:00)
[2020-09-16] MEDS: ALBUMIN HUMAN 25%- 100 ML 100 ML IV SCH (09:43)
[2020-09-16] MEDS: CORDARONE TAB 200 MG PO SCH (09:53)
[2020-09-16] MEDS: COREG TAB 6.25 MG PO SCH ×2 (09:53→21:37)
[2020-09-16] MEDS: ZINC SULFATE PO SCH ×2 (09:53→21:38)
[2020-09-16] MEDS: ULORIC PO SCH (09:54)
[2020-09-16] MEDS: PLAVIX PO SCH (09:54)
[2020-09-16] MEDS: LASIX IVP SCH ×2 (09:54→16:43)
[2020-09-16] MEDS: FOLIC ACID TAB 1 MG PO SCH (09:54)
[2020-09-16] MEDS: ELIQUIS PO SCH ×2 (09:54→21:37)
[2020-09-16] MEDS: ZESTRIL TAB 5 MG PO SCH (09:55)
[2020-09-16] MEDS: VITAMIN A PO SCH (10:37)
[2020-09-16] MEDS: PEPCID TAB 20 MG PO SCH ×2 (10:37→21:38)
[2020-09-16] MEDS ORDERED: TYGACIL 50 MG VIAL 100 MG in NS 100 ML IV 100 ML IV ONE (13:58)
[2020-09-16] MEDS: NS + KCL 20 MEQ/L 1,000 ML IV SCH (17:33)
[2020-09-16] MEDS: TYGACIL 50 MG VIAL 50 MG in NS 100 ML IV 100 ML IV SCH (21:38)
[2020-09-16] MEDS: TRICOR TAB 145 MG PO SCH (21:38)
[2020-09-17] MEDS: NS + KCL 20 MEQ/L 1,000 ML IV SCH ×2 (06:33→16:43)
--- NOTE | 2020-09-17 06:37 | RAD ---
HISTORYCHFSTUDYCHEST, PA/LAT ADULTCOMPARISONOne day prior.TECHNIQUETwo-view chestFINDINGSPatient is significantly rotated, limiting evaluation. Thoracic kyphosis. Cardiac silhouette is stably enlarged status post median sternotomy and CABG. Interval improvement in right upper lobe airspace opacity. Left lung airspace and interstitial opacities remain. Suspect small pleural effusions with blunted costophrenic sulci. No pneumothorax.IMPRESSIONMild improvement in right upper lobe airspace disease. Otherwise stable.Electronically signed by: Jaime Perry (Sep 17, 2020 06:35:04)
[2020-09-17] MEDS: ALBUMIN HUMAN 25%- 100 ML 100 ML IV SCH (08:34)
[2020-09-17] MEDS: CORDARONE TAB 200 MG PO SCH (08:36)
[2020-09-17] MEDS: PEPCID TAB 20 MG PO SCH ×2 (08:37→21:51)
[2020-09-17] MEDS: FOLIC ACID TAB 1 MG PO SCH (08:37)
[2020-09-17] MEDS: COREG TAB 6.25 MG PO SCH ×2 (08:37→21:50)
[2020-09-17] MEDS: ELIQUIS PO SCH ×2 (08:37→21:50)
[2020-09-17] MEDS: PLAVIX PO SCH (08:39)
[2020-09-17] MEDS: ZINC SULFATE PO SCH ×2 (08:42→21:50)
[2020-09-17] MEDS: LASIX IVP SCH ×2 (08:42→17:16)
[2020-09-17] MEDS: ZESTRIL TAB 5 MG PO SCH (08:42)
[2020-09-17] MEDS ORDERED: LASIX IVP ONE (09:00)
[2020-09-17] MEDS: TYGACIL 50 MG VIAL 50 MG in NS 100 ML IV 100 ML IV SCH ×2 (10:29→21:51)
[2020-09-17] MEDS: ULORIC PO SCH (10:29)
[2020-09-17] MEDS: VITAMIN A PO SCH (10:30)
[2020-09-17] MEDS: TRICOR TAB 145 MG PO SCH (21:51)
[2020-09-18] MEDS: NS + KCL 20 MEQ/L 1,000 ML IV SCH ×2 (06:42→18:17)
[2020-09-18 06:50] LABS: BASOPHILS # (AUTO) 0.1 X10^3/uL (0.0-0.1); BASOPHILS % (AUTO) 0.9 % (0.2-1.0); EOSINOPHILS # (AUTO) 0.1 x10^3/uL (0.0-0.2); EOSINOPHILS % (AUTO) 1.1 % (0.9-2.9); HEMATOCRIT 36.4 % (36.0-47.0); HEMOGLOBIN 11.9 g/dL (12.0-16.0); LYMPHOCYTES # (AUTO) 1.1 X10^3/uL (1.3-2.9); LYMPHOCYTES % (AUTO) 14.3 % (21.0-51.0); MEAN CORPUSCULAR HEMOGLOBIN 29.3 pg (27.0-34.0); MEAN CORPUSCULAR HGB CONC 32.7 g/dL (33.0-35.0); MEAN CORPUSCULAR VOLUME 89.7 fL (80.0-100.0); MEAN PLATELET VOLUME 10.1 fL (7.4-11.0); MONOCYTES # (AUTO) 0.7 x10^3/uL (0.3-0.8); MONOCYTES % (AUTO) 9.5 % (0.0-13.0); NEUTROPHILS # (AUTO) 5.5 x10^3/uL (2.2-4.8); NEUTROPHILS % (AUTO) 74.2 % (42.0-75.0); PLATELET COUNT 192 X10^3/uL (150.0-450.0); RED BLOOD COUNT 4.06 X10^6/uL (3.5-5.4); RED CELL DISTRIBUTION WIDTH 14.2 % (11.6-16.5); WHITE BLOOD COUNT 7.4 X10^3/uL (3.6-10.0)
[2020-09-18 07:24] LABS: ALANINE AMINOTRANSFERASE 16 Units/L (12-78); ALBUMIN 3.5 g/dL (3.4-5.0); ALKALINE PHOSPHATASE 89 Units/L (46-116); ASPARTATE AMINO TRANSFERASE 28 Units/L (15-37); BLOOD UREA NITROGEN 36 mg/dL (7-18); CALCIUM 9.3 mg/dL (8.5-10.1); CHLORIDE 96 mmol/L (98-107); CREATININE 0.87 mg/dL (0.55-1.02); SODIUM 143 mmol/L (136-145); TOTAL PROTEIN 6.6 g/dL (6.4-8.2); eGFR NON BLACK RACES > 60 (>60)
[2020-09-18 07:33] LABS: CARBON DIOXIDE 44.1 mmol/L (21-32)
[2020-09-18] MEDS: MAGNESIUM SULFATE 1 GRAM/100 mL PREMIX 4 G/400 ML BAG IV SCH ×3 (08:55→13:54)
[2020-09-18] MEDS: CORDARONE TAB 200 MG PO SCH (08:56)
[2020-09-18] MEDS: ALBUMIN HUMAN 25%- 100 ML 100 ML IV SCH (08:56)
[2020-09-18] MEDS: ZINC SULFATE PO SCH ×2 (08:57→20:48)
[2020-09-18] MEDS: ELIQUIS PO SCH ×2 (08:57→20:47)
[2020-09-18] MEDS: FOLIC ACID TAB 1 MG PO SCH (08:57)
[2020-09-18] MEDS: PEPCID TAB 20 MG PO SCH ×2 (08:57→20:47)
[2020-09-18] MEDS: PLAVIX PO SCH (08:58)
[2020-09-18] MEDS: COREG TAB 6.25 MG PO SCH (08:59)
[2020-09-18] MEDS: ZESTRIL TAB 5 MG PO SCH (08:59)
[2020-09-18] MEDS: TYGACIL 50 MG VIAL 50 MG in NS 100 ML IV 100 ML IV SCH ×2 (08:59→20:48)
[2020-09-18] MEDS: VITAMIN A PO SCH (09:00)
[2020-09-18] MEDS: K-DUR TAB 20 MEQ PO SCH (09:00)
--- NOTE | 2020-09-18 09:51 | RAD ---
HISTORY:CHFStudy: Single view chestComparison:09/17/2020, 09/16/2020Findings:There is mildly improved aeration of the lungs but with persistent multifocal infiltrates. There is a small right effusion. Stable cardiomegaly and central vascular congestion. There is a dual-chamber pacemaker in place.IMPRESSION:Mildly improved aeration of the lungs but with persistent multifocal infiltrates.Cardiomegaly and small right effusion.Electronically signed by: BETTY PAVON (Sep 18, 2020 09:48:50)
[2020-09-18] MEDS: PULMICORT NEB TX 0.5 MG NEB SCH ×2 (10:00→23:00)
[2020-09-18] MEDS: DUONEB 0.5 MG/3 MG (3 mL) NEB SCH ×4 (10:00→23:00)
[2020-09-18] MEDS: ULORIC PO SCH (12:36)
[2020-09-18] MEDS: TRICOR TAB 145 MG PO SCH (20:47)
[2020-09-19] MEDS: COREG TAB 6.25 MG PO SCH ×2 (00:40→09:37)
[2020-09-19] MEDS: DUONEB 0.5 MG/3 MG (3 mL) NEB SCH (06:58)
[2020-09-19 07:00] LABS: BASOPHILS # (AUTO) 0.1 X10^3/uL (0.0-0.1); BASOPHILS % (AUTO) 1.1 % (0.2-1.0); EOSINOPHILS # (AUTO) 0.3 x10^3/uL (0.0-0.2); EOSINOPHILS % (AUTO) 4.4 % (0.9-2.9); HEMATOCRIT 36.7 % (36.0-47.0); HEMOGLOBIN 11.8 g/dL (12.0-16.0); LYMPHOCYTES # (AUTO) 0.9 X10^3/uL (1.3-2.9); LYMPHOCYTES % (AUTO) 15.4 % (21.0-51.0); MEAN CORPUSCULAR HGB CONC 32.2 g/dL (33.0-35.0); MEAN CORPUSCULAR VOLUME 89.9 fL (80.0-100.0); MEAN PLATELET VOLUME 10.5 fL (7.4-11.0); MONOCYTES # (AUTO) 0.5 x10^3/uL (0.3-0.8); MONOCYTES % (AUTO) 8.8 % (0.0-13.0); NEUTROPHILS # (AUTO) 4.3 x10^3/uL (2.2-4.8); NEUTROPHILS % (AUTO) 70.3 % (42.0-75.0); PLATELET COUNT 207 X10^3/uL (150.0-450.0); RED BLOOD COUNT 4.08 X10^6/uL (3.5-5.4); RED CELL DISTRIBUTION WIDTH 14.4 % (11.6-16.5); WHITE BLOOD COUNT 6.1 X10^3/uL (3.6-10.0)
[2020-09-19 07:08] LABS: ALANINE AMINOTRANSFERASE 13 Units/L (12-78); ALBUMIN 3.5 g/dL (3.4-5.0); ALKALINE PHOSPHATASE 81 Units/L (46-116); ASPARTATE AMINO TRANSFERASE 23 Units/L (15-37); BLOOD UREA NITROGEN 42 mg/dL (7-18); CALCIUM 9.9 mg/dL (8.5-10.1); CARBON DIOXIDE 38.4 mmol/L (21-32); CHLORIDE 99 mmol/L (98-107); CREATININE 0.89 mg/dL (0.55-1.02); SODIUM 140 mmol/L (136-145); TOTAL PROTEIN 6.3 g/dL (6.4-8.2); eGFR NON BLACK RACES > 60 (>60)
[2020-09-19] MEDS: NS + KCL 20 MEQ/L 1,000 ML IV SCH (07:30)
[2020-09-19] MEDS: CORDARONE TAB 200 MG PO SCH (09:37)
[2020-09-19] MEDS: FOLIC ACID TAB 1 MG PO SCH (09:37)
[2020-09-19] MEDS: ELIQUIS PO SCH (09:37)
[2020-09-19] MEDS: PEPCID TAB 20 MG PO SCH (09:38)
[2020-09-19] MEDS: PLAVIX PO SCH (09:38)
[2020-09-19] MEDS: K-DUR TAB 20 MEQ PO SCH (09:38)
[2020-09-19] MEDS: ALBUMIN HUMAN 25%- 100 ML 100 ML IV SCH (10:05)
[2020-09-19] MEDS: VITAMIN A PO SCH (10:06)
[2020-09-19] MEDS: ULORIC PO SCH (10:06)
[2020-09-19] MEDS: PULMICORT NEB TX 0.5 MG NEB SCH (10:06)
[2020-09-19] MEDS: ZESTRIL TAB 5 MG PO SCH (10:07)
[2020-09-19] MEDS: ZINC SULFATE PO SCH (10:07)
[2020-09-19] MEDS: TYGACIL 50 MG VIAL 50 MG in NS 100 ML IV 100 ML IV SCH (10:07)
[2020-09-19 10:21] VITALS: BP 115/67
== END 2020-09-19 12:15 | disposition home health service (06) | DRG 293 ==
LOC: ER 14:51 → OBS 09-10 00:11 → MED/SURG 09-10 14:18
PROVIDERS: ADMIT Internal Medicine; ATTEND Obstetrics & Gynecology Obstetrics
DX: R06.03 Acute respiratory distress; I50.9 Heart failure, unspecified; I25.10 Atherosclerotic heart disease of native coronary artery without angina pectoris; R26.89 Other abnormalities of gait and mobility; Z66 Do not resuscitate; Z20.828 Contact with and (suspected) exposure to other viral communicable diseases; J44.9 Chronic obstructive pulmonary disease, unspecified; E11.65 Type 2 diabetes mellitus with hyperglycemia; E03.8 Other specified hypothyroidism; R94.31 Abnormal electrocardiogram [ECG] [EKG]

== ENCOUNTER 2020-10-17 11:15 | Inpatient (IN) ==
[2020-10-17 11:26] VITALS: BMI 21.0
--- NOTE | 2020-10-17 11:39 | DR.SOBA ---
HPI Time Seen Time Seen by Provider: 10/17/20 11:35 Primary Care Physician Primary Care Physician: Matt HPI Comment HPI Comment: PATIENT IS 79YR OLD FEMALE IN ER WITH INCREASING SOB AND LOW OXYGEN SATURATION SINCE THIS AM. SHE IS RETRACTING AND HAVE 3 PLUS PEDAL EDEMA. SHE DID NOT TAKE LASIX FOR 3DAYS. EMS REPORT O2 SAT OF Complaints Chief Complaint Doctors Comments: INCREASING SOB AND LOW OXYGEN SATURATION SINCE THIS AM. Chief Complaint:: Pt c/o chronic shortness of breath related to CHF. She states this worsened this am. Pt has 3+ pitting edema to lower extremities. She has not taken Lasix since Wednesday. COVID-19 Coronavirus risk:travel/contact w/high risk person: No Has patient experienced Coronavirus symptoms: No Reviewed Nurses Notes Reviewed: Yes Source History Provided: Patient and EMS Mode of Arrival Mode of Arrival: EMS Timing Onset of Chief Complaint: 10/17/20 Duration Duration: Days Context Onset:: At Rest PE Risk Factors:: None History of:: None Currently on:: Neither Prehospital Care:: O2 and Inhaled B2 Modifying Factors Worsens:: Exertion Improves:: Rest Associated Signs and Symptoms Associated Signs and Symptoms: Cough and Leg Swelling If Chest Pain Quality: Pleuritic Location: Substernal If Cough Cough: Productive PMH PMH Past Medical History: Yes Past Medical History: Arthritis, Coronary Artery Disease, Diabetes, Dyslipidemia, Hypothyroidism and [place] Past Surgical History: Yes Surgical History: Angioplasty/Stents, CABG/Valve Surgery, Cholecystectomy, Hysterectomy and Thyroidectomy Family History History of Family Medical Conditions: Yes Family Medical History: Diabetes Mellitus, Cancer, Heart Failure and Hypertension Social History Does patient currently use any type of tobacco product: No Have you used tobacco products in the last 12 months: No Type of Tobacco Use: None Do you use any recreational Drugs:: No Travel Risk Coronavirus risk:travel/contact w/high risk person: No Has patient experienced Coronavirus symptoms: No Infectious screening In the last 2 months have you had wt loss of >10#?: NO Have you had fever, night sweats or hemotysis?: No Have you traveled outside the country in the last 6 months?: No Isolation: Standard ROS Review of Systems Constitutional: Weakness and Fatigue; negative Fever Eyes: No Symptoms Reported and See HPI ENTM: See HPI and Nose Congestion; negative Nose Discharge Respiratoy: No Symptoms Reported, See HPI, Moist Cough, Short of Breath and Whee zing Cardiovascular: See HPI, Chest Pain and Edema Gastrointestinal/Abdominal: No Symptoms Reported and See HPI; negative Abdominal Pain, Diarrhea and Vomiting Genitourinary: No Symptoms Reported and See HPI; negative Dysuria Neurological: See HPI and Weakness; negative Headache and Dizziness Musculoskeletal: No Symptoms Reported and See HPI; negative Back Pain and Muscle Pain Integumentary: No Symptoms Reported and See HPI; negative Change in Color, Rash and Juandice Hematologic/Lymphatic: No Symptoms Reported and See HPI; negative Easy Bruising and Swollen Glands Endocrine: No Symptoms Reported and See HPI; negative Increased Thirst, Increased Urine and Decreased Appetite Psychiatric: No Symptoms Reported and See HPI All Other Systems: Reviewed and Negative PE Vital Signs Vitals: Temperature 96.2 F Pulse Rate [Left Radial] 76 Pulse Rate 79 Respiratory Rate 24 Blood Pressure [Left Arm] 121/72 Blood Pressure [Right Arm] 148/63 Blood Pressure 119/89 O2 Sat by Pulse Oximetry 89 General Limitations: No Limitations General Appearance: Alert and In No Apparent Distress Head Head Exam: Normal Inspection and Atraumatic Eyes Eye exam: Normal Appearance and PERRL; negative Scleral Icterus and Conjunctival Injection ENT ENT Exam: Normal Exam, Normal Oropharynx, Normal External Ear Exam and TM's Normal Bilaterally Neck Neck Exam: Normal Inspection and Trachea Midline; negative Tenderness and Lymphadenopathy Chest Chest Inspection: Normal Inspection and Symmetric Chest Wall Rise; negative Tenderness Respiratory Respiratory Exam: Normal Lung Sounds Bilat, Accessory Muscle Use and Respiratory Distress; negative Chest Wall Tenderness Respiratory Exam: Bilateral: Wheezing and Bilateral: Rhonchi and Lower: Wheezing and Lower: Rhonchi Cardiovascular Cardiovascular Exam: Regular Rate, Normal Rhythm and Normal Heart Sounds; negative Systolic Murmur and Diastolic Murmur Abdominal Exam Abdominal Exam: Normal Inspection, Normal Bowel Sounds and Soft; negative Tenderness Extremities Extremities Exam: Normal Capillary Refill and Edema; negative Tenderness and Calf Tenderness Back Back Exam: Normal Inspection; negative (R) CVA Tenderness and (L) CVA Tenderness Neurologic Neurological Exam: Alert and Oriented X3 Psychiatric Psychiatric Exam: Normal Affect and Anxious; negative Homicidal Ideation Skin Skin Exam: Warm, Dry, Intact and Normal Color MDM Additional Information Obtained Additional Information Obtained From: Old Records Differential Diagnosis Differential Diagnosis: Bronchitis, CHF, Dysrhythmia, Hyponatremia, Mycardial Infarction, Pneumonia, Pneumothorax, Respiratory Insufficiency, Sinusitis and URI COURSE Treatment Treatment: SEE ORDERS. LASIX 20MG IV AND DUONEB 0.5MG/3ML NEB. Education/Counseling Education/Counseling: Patient Educated On: Diagnosis Education Comments: DISCUSSED PATIENT WITH DR. COLVIN. HE WILL ADMIT PATIENT. ROR Labs Reviewed Laboratory Results Reviewed?: Yes Result Diagrams: 10/18/20 06:33 10/18/20 06:33 Laboratory: WBC 5.0 X10^3/uL (3.6-10.0) 10/17/20 11:50 RBC 3.83 X10^6/uL (3.5-5.4) 10/17/20 11:50 Hgb 11.2 g/dL (12.0-16.0) L 10/17/20 11:50 Hct 35.2 % (36.0-47.0) L 10/17/20 11:50 MCV 91.9 fL (80.0-100.0) 10/17/20 11:50 MCH 29.4 pg (27.0-34.0) 10/17/20 11:50 MCHC 31.9 g/dL (33.0-35.0) L 10/17/20 11:50 RDW 15.8 % (11.6-16.5) 10/17/20 11:50 Plt Count 315 X10^3/uL (150.0-450.0) 10/17/20 11:50 MPV 8.2 fL (7.4-11.0) 10/17/20 11:50 Neut % (Auto) 76.5 % (42.0-75.0) H 10/17/20 11:50 Lymph % (Auto) 13.0 % (21.0-51.0) L 10/17/20 11:50 [place] % (Auto) 7.6 % (0.0-13.0) 10/17/20 11:50 Eos % (Auto) 1.9 % (0.9-2.9) 10/17/20 11:50 Baso % (Auto) 1.0 % (0.2-1.0) 10/17/20 11:50 Neut # (Auto) 3.9 x10^3/uL (2.2-4.8) 10/17/20 11:50 Lymph # (Auto) 0.7 X10^3/uL (1.3-2.9) L 10/17/20 11:50 [place] # (Auto) 0.4 x10^3/uL (0.3-0.8) 10/17/20 11:50 Eos # (Auto) 0.1 x10^3/uL (0.0-0.2) 10/17/20 11:50 Baso # (Auto) 0.0 X10^3/uL (0.0-0.1) 10/17/20 11:50 Absolute Nucleated RBC 0.0 /100WBC 10/17/20 11:50 Sample Site Lr 10/17/20 11:46 ABG pH 7.410 (7.35-7.45) 10/17/20 11:46 ABG pCO2 60.0 mmHg (35.0-45.0) H* 10/17/20 11:46 ABG pO2 121.0 mmHg (80.0-100.0) H 10/17/20 11:46 ABG HCO3 38.0 mmol/L (22-26) H* 10/17/20 11:46 ABG O2 Saturation 99.0 % (90-100) 10/17/20 11:46 ABG Base Excess 11.1 mmol/L (-2.0-2.0) H 10/17/20 11:46 Rodrigo Test Pos 10/17/20 11:46 A-a Gradient 118.0 mmHg 10/17/20 11:46 FiO2 44.0 10/17/20 11:46 Blood Gas Comments Pt destin well cdn 10/17/20 11:46 Sodium 140 mmol/L (136-145) 10/17/20 11:50 Corrected Sodium 142 mmol/L (136-145) 10/17/20 11:50 Potassium 3.8 mmol/L (3.5-5.1) 10/17/20 11:50 Chloride 97 mmol/L (98-107) L 10/17/20 11:50 Carbon Dioxide 36.7 mmol/L (21-32) H 10/17/20 11:50 BUN 17 mg/dL (7-18) 10/17/20 11:50 Creatinine 1.10 mg/dL (0.55-1.02) H 10/17/20 11:50 Est GFR (MDRD) Af Amer > 60 (>60) 10/17/20 11:50 Est GFR (MDRD) Non-Af 51 (>60) L 10/17/20 11:50 Glucose 163 mg/dL (65-99) H 10/17/20 11:50 Calcium 10.2 mg/dL (8.5-10.1) H 10/17/20 11:50 Corrected Calcium 10.8 mg/dL (8.5-10.1) H 10/17/20 11:50 Total Bilirubin 0.90 mg/dL (0.2-1.0) 10/17/20 11:50 AST 24 Units/L (15-37) 10/17/20 11:50 ALT 15 Units/L (12-78) 10/17/20 11:50 Alkaline Phosphatase 78 Units/L (46-116) 10/17/20 11:50 Creatine Kinase 45 Units/L (26-192) 10/17/20 11:50 CK-MB (CK-2) 1.8 ng/mL (0-4.0) 10/17/20 11:50 CK/CKMB % Calc 4.0 % (<4) 10/17/20 11:50 Troponin I 0.07 ng/mL (0-1.5) 10/17/20 11:50 B-Natriuretic Peptide 2020 pg/mL (0-79) H* 10/17/20 11:50 Total Protein 7.2 g/dL (6.4-8.2) 10/17/20 11:50 Albumin 3.2 g/dL (3.4-5.0) L 10/17/20 11:50 Globulin 4.0 g/dL (2.5-4.5) 10/17/20 11:50 Albumin/Globulin Ratio 0.8 Ratio (1.1-2.1) L 10/17/20 11:50 SARS CoV-2 RNA Rapid WEI Negative (NEGATIVE) 10/17/20 15:02 XRAY XRAY Interpreted by: Radiologist (REPORT NOTED AND DISCUSSED WITH PATIENT.) and Self EKG Rate: 84 [place]: Normal Rhythm: NSR and PVCs Block: LBBB Hypertrophy: None ST: Nonsp Opioid Opioid Risk Tool Age ( box if 16-45): No History of Preadolescent Sexual Abuse: No Total: 0 Total Score Risk Category: Low Risk Copyright: Kiel ROSAS predicting aberrant behaviors Diagnosis Discharge Problem: SOB (shortness of breath) CHF (congestive heart failure) Qualifiers: Heart failure type: combined systolic and diastolic Heart failure chronicity: acute on chronic Qualified Code(s): I50.43 - Acute on chronic combined systolic (congestive) and diastolic (congestive) heart failure Instructions Instructions: Shortness of Breath, Adult, Kmjw-qy-Pzyc Hypoxemia Hypotension, Bgiw-na-Wrgg Home Oxygen Use, Adult Hand Washing, Qksn-ry-Jsgi Heart Failure, Phnu-gm-Rwvd Forms: Excuse From Work or School Precautions for COVID19 Patient Portal Social Distancing
[2020-10-17 11:52] LABS: ABG BASE EXCESS 11.1 mmol/L (-2.0-2.0)
[2020-10-17 11:54] LABS: ABG ALLEN TEST POS
[2020-10-17 12:02] LABS: EOSINOPHILS # (AUTO) 0.1 x10^3/uL (0.0-0.2); EOSINOPHILS % (AUTO) 1.9 % (0.9-2.9); HEMATOCRIT 35.2 % (36.0-47.0); HEMOGLOBIN 11.2 g/dL (12.0-16.0); LYMPHOCYTES # (AUTO) 0.7 X10^3/uL (1.3-2.9); MEAN CORPUSCULAR HEMOGLOBIN 29.4 pg (27.0-34.0); MEAN CORPUSCULAR HGB CONC 31.9 g/dL (33.0-35.0); MEAN CORPUSCULAR VOLUME 91.9 fL (80.0-100.0); MEAN PLATELET VOLUME 8.2 fL (7.4-11.0); MONOCYTES # (AUTO) 0.4 x10^3/uL (0.3-0.8); MONOCYTES % (AUTO) 7.6 % (0.0-13.0); NEUTROPHILS # (AUTO) 3.9 x10^3/uL (2.2-4.8); NEUTROPHILS % (AUTO) 76.5 % (42.0-75.0); PLATELET COUNT 315 X10^3/uL (150.0-450.0); RED BLOOD COUNT 3.83 X10^6/uL (3.5-5.4); RED CELL DISTRIBUTION WIDTH 15.8 % (11.6-16.5)
[2020-10-17] MEDS ORDERED: LASIX IVP ONE ×2 (12:07→13:26)
--- NOTE | 2020-10-17 12:27 | RAD ---
HISTORYSOBSTUDYCHEST, 1 VIEWCOMPARISONPortable chest September 18, 2020.FINDINGSThe trachea is midline. The cardiac silhouette is mildly enlarged but stable in size. There are sternotomy wires from prior CABG surgery. Pacemaker is in place battery over the right anterior lower thorax with 1 lead in the right atrium 1 lead in the inferior right ventricle.. The lungs are clear without focal infiltrate or effusion. Two small nodular densities are stable along the left lateral thorax unchanged from September 18, 2020. There has been improvement in the vascular congestion and effusion when compared to older film of September 15, 2020. The bony thorax is unremarkable.IMPRESSIONStable cardiomegaly postsurgical changes from CABG surgery and chronic lung changes of fibrosis but no significant vascular congestion or pulmonary edema or pleural effusion at this time. The findings of CHF that were present in August and early September of 2020 have largely resolved.Electronically signed by: MAIK CALI (Oct 17, 2020 12:25:45)
[2020-10-17] MEDS ORDERED: LASIX ONE ×2 (12:28→13:27)
[2020-10-17 12:42] LABS: BLOOD UREA NITROGEN 17 mg/dL (7-18); CALCIUM 10.2 mg/dL (8.5-10.1); CARBON DIOXIDE 36.7 mmol/L (21-32); CHLORIDE 97 mmol/L (98-107); COR NA(FOR HYPERGLY) 142 mmol/L (136-145); SODIUM 140 mmol/L (136-145); TROPONIN I 0.07 ng/mL (0-1.5); eGFR NON BLACK RACES 51 (>60)
[2020-10-17 12:45] LABS: ALANINE AMINOTRANSFERASE 15 Units/L (12-78); ALBUMIN 3.2 g/dL (3.4-5.0); ALKALINE PHOSPHATASE 78 Units/L (46-116); ASPARTATE AMINO TRANSFERASE 24 Units/L (15-37); COR CA(FOR HYPOALB) 10.8 mg/dL (8.5-10.1); CREATINE KINASE 45 Units/L (26-192); CREATINE KINASE MB 1.8 ng/mL (0-4.0); TOTAL PROTEIN 7.2 g/dL (6.4-8.2)
[2020-10-17] MEDS: DUONEB 0.5 MG/3 MG (3 mL) NEB ONE ×2 (13:56→14:08)
[2020-10-17] MEDS ORDERED: DUONEB 0.5 MG/3 MG (3 mL) NEB ONE (14:06)
[2020-10-18 06:11] LABS: BILIRUBIN,URINE NEGATIVE (NEGATIVE); BLOOD/HEMOGLOBIN,URINE 1+ (NEGATIVE); GLUCOSE, URINE NEGATIVE (NEGATIVE); KETONES,URINE NEGATIVE (NEGATIVE); LEUKOCYTE ESTERASE ,URINE 1+ (NEGATIVE); NITRITES,URINE POSITIVE (NEGATIVE); PROTEIN,URINE 1+ (NEGATIVE); UROBILINOGEN,URINE 1+ (NORMAL)
[2020-10-18 06:24] LABS: APPEARANCE,URINE CLOUDY (CLEAR); COLOR,URINE YELLOW (YELLOW)
[2020-10-18 06:25] LABS: BACTERIA,URINE 3+ /HPF (NEGATIVE); RBC,URINE 0-2 /HPF (0-3); SQUAMOUS EPITHELIAL CELL,UR FEW /HPF (NEGATIVE)
[2020-10-18 07:32] LABS: BASOPHILS # (AUTO) 0.1 X10^3/uL (0.0-0.1); BASOPHILS % (AUTO) 1.2 % (0.2-1.0); EOSINOPHILS # (AUTO) 0.2 x10^3/uL (0.0-0.2); EOSINOPHILS % (AUTO) 3.9 % (0.9-2.9); HEMATOCRIT 32.9 % (36.0-47.0); HEMOGLOBIN 10.6 g/dL (12.0-16.0); LYMPHOCYTES # (AUTO) 0.6 X10^3/uL (1.3-2.9); MEAN CORPUSCULAR HEMOGLOBIN 29.2 pg (27.0-34.0); MEAN CORPUSCULAR HGB CONC 32.2 g/dL (33.0-35.0); MEAN CORPUSCULAR VOLUME 90.7 fL (80.0-100.0); MEAN PLATELET VOLUME 8.6 fL (7.4-11.0); MONOCYTES # (AUTO) 0.5 x10^3/uL (0.3-0.8); MONOCYTES % (AUTO) 10.4 % (0.0-13.0); NEUTROPHILS # (AUTO) 3.8 x10^3/uL (2.2-4.8); NEUTROPHILS % (AUTO) 72.5 % (42.0-75.0); PLATELET COUNT 191 X10^3/uL (150.0-450.0); RED BLOOD COUNT 3.62 X10^6/uL (3.5-5.4); RED CELL DISTRIBUTION WIDTH 15.9 % (11.6-16.5); WHITE BLOOD COUNT 5.3 X10^3/uL (3.6-10.0)
[2020-10-18 08:03] LABS: ALANINE AMINOTRANSFERASE 9 Units/L (12-78); ALBUMIN 2.8 g/dL (3.4-5.0); ALKALINE PHOSPHATASE 77 Units/L (46-116); ASPARTATE AMINO TRANSFERASE 24 Units/L (15-37); BLOOD UREA NITROGEN 17 mg/dL (7-18); CALCIUM 9.8 mg/dL (8.5-10.1); CARBON DIOXIDE 36.2 mmol/L (21-32); CHLORIDE 100 mmol/L (98-107); CHOL/HDL RATIO 2.7 (0.0-5.0); CHOLESTEROL 108 mg/dL (0-200); COR CA(FOR HYPOALB) 10.8 mg/dL (8.5-10.1); HDL CHOLESTEROL 40 mg/dL (40-60); MAGNESIUM 1.3 mg/dL (1.7-2.9); SODIUM 143 mmol/L (136-145); TOTAL PROTEIN 6.5 g/dL (6.4-8.2); TRIGLYCERIDES 99 mg/dL (0-150); eGFR NON BLACK RACES 57 (>60)
[2020-10-18] MEDS ORDERED: LASIX ONE (08:36)
[2020-10-18] MEDS ORDERED: LASIX IVP SCH (09:00)
[2020-10-18] MEDS ORDERED: ELIQUIS PO SCH (10:15)
[2020-10-18 10:53] LABS: ABG BASE EXCESS 18.7 mmol/L (-2.0-2.0)
[2020-10-18 10:54] LABS: ABG ALLEN TEST POS; ABG HCO3 45.4 mmol/L (22-26)
[2020-10-18] MEDS ORDERED: ELIQUIS ONE (11:08)
[2020-10-18 12:10] VITALS: BP 97/56
== END 2020-10-18 13:39 | disposition home health service (06) | DRG 292 ==
LOC: ER 11:15 → OBS 11:15 → OBSVTOIN 15:40 → MED/SURG 15:41
PROVIDERS: ADMIT Obstetrics & Gynecology Obstetrics; ATTEND Obstetrics & Gynecology Obstetrics
DX: E11.65 Type 2 diabetes mellitus with hyperglycemia; K21.9 Gastro-esophageal reflux disease without esophagitis; I11.0 Hypertensive heart disease with heart failure; B96.29 Other Escherichia coli [E. coli] as the cause of diseases classified elsewhere; I48.91 Unspecified atrial fibrillation; I25.10 Atherosclerotic heart disease of native coronary artery without angina pectoris; E03.8 Other specified hypothyroidism; N39.0 Urinary tract infection, site not specified; J44.9 Chronic obstructive pulmonary disease, unspecified; R60.0 Localized edema; Z20.822 Contact with and (suspected) exposure to COVID-19; R94.31 Abnormal electrocardiogram [ECG] [EKG]; R06.89 Other abnormalities of breathing; E78.2 Mixed hyperlipidemia; R06.02 Shortness of breath

== ENCOUNTER 2020-11-19 13:20 | Inpatient (IN) ==
--- NOTE | 2020-11-19 13:31 | DR.SOBA ---
HPI Time Seen Time Seen by Provider: 11/19/20 13:28 HPI Comment HPI Comment: PATIENT IS 80YR OLD FEMALE IN ER WITH INCREASING SOB, GENERALIZED WEAKNESS AND OXYGEN DESATURATION NOTED TODAY. 4 PLUS PITTING EDEMA AND PERIORBITAL EDEMA PRESENT. HAVING SOME CHEST TIGHTNESS. NO FEVER. USES C-PAP AT HOME. O2 SAT WAS 88 ON C-PAP. Complaints Chief Complaint Doctors Comments: INCREASING SOB THIS AM. ON C-PAP AND O2 SAT LESS THAN 88. COVID-19 Coronavirus risk:travel/contact w/high risk person: No Has patient experienced Coronavirus symptoms: Yes Coronavirus symptoms experienced: Coughing and Shortness of Breath Reviewed Nurses Notes Reviewed: Yes Source History Provided: Parent, Family Member and EMS Mode of Arrival Mode of Arrival: EMS Duration Duration: Days Context Onset:: At Rest History of:: CHF Currently on:: Neither Prehospital Care:: O2 Modifying Factors Worsens:: Exertion and Lying Flat Improves:: Rest and Sitting Up Associated Signs and Symptoms Associated Signs and Symptoms: Wheeze, Chest Pain and Leg Swelling If Chest Pain Quality: Pleuritic Location: Substernal If Cough Cough: Productive and Clear PMH PMH Past Medical History: Arthritis, Coronary Artery Disease, Diabetes, Dyslipidemia, Hypothyroidism and [place] Past Surgical History: Yes Surgical History: Hysterectomy and Thyroidectomy Family History Family Medical History: Diabetes Mellitus and Hypertension Social History Do you use any recreational Drugs:: No ROS Review of Systems Constitutional: See HPI, Weakness and Fatigue; negative Fever Eyes: No Symptoms Reported and See HPI ENTM: See HPI and Nose Congestion; negative Nose Discharge Respiratoy: See HPI, Moist Cough, Short of Breath and Wheezing Cardiovascular: See HPI, Chest Pain (TIGHTNESS.) and Edema Gastrointestinal/Abdominal: No Symptoms Reported and See HPI; negative Abdominal Pain, Diarrhea and Vomiting Genitourinary: No Symptoms Reported and See HPI; negative Dysuria Neurological: See HPI and Weakness; negative Headache and Dizziness Musculoskeletal: See HPI and Back Pain; negative Muscle Pain Integumentary: No Symptoms Reported and See HPI; negative Change in Color, Rash and Juandice Hematologic/Lymphatic: See HPI and Easy Bruising; negative Swollen Glands Endocrine: See HPI, Increased Thirst and Decreased Appetite Psychiatric: See HPI and Other (confusion.) All Other Systems: Reviewed and Negative PE Vital Signs Vitals: Temperature 98.2 F Pulse Rate 92 Respiratory Rate 28 Blood Pressure [Left Arm] 97/56 Blood Pressure 121/78 O2 Sat by Pulse Oximetry 99 General Limitations: Altered Mental Status General Appearance: Alert and In Distress Head Head Exam: Normal Inspection and Atraumatic Eyes Eye exam: Normal Appearance and PERRL; negative Scleral Icterus and Conjunctival Injection ENT ENT Exam: Normal Exam, Normal Oropharynx, Normal External Ear Exam and TM's Normal Bilaterally Neck Neck Exam: Normal Inspection and Trachea Midline; negative Tenderness and Lymphadenopathy Chest Chest Inspection: Normal Inspection and Symmetric Chest Wall Rise; negative Tenderness Respiratory Respiratory Exam: Normal Lung Sounds Bilat and Respiratory Distress; negative Accessory Muscle Use and Chest Wall Tenderness Respiratory Exam: Bilateral: Wheezing and Bilateral: Rhonchi and Lower: Wheezing and Lower: Rhonchi Cardiovascular Cardiovascular Exam: Regular Rate, Normal Rhythm and Normal Heart Sounds; negative Systolic Murmur and Diastolic Murmur Abdominal Exam Abdominal Exam: Normal Inspection, Normal Bowel Sounds and Soft; negative Tenderness Extremities Extremities Exam: Normal Capillary Refill and Edema; negative Tenderness and Calf Tenderness Back Back Exam: Normal Inspection; negative (R) CVA Tenderness and (L) CVA Tenderness Neurologic Neurological Exam: Alert; negative Motor Sensory Deficit Psychiatric Psychiatric Exam: Normal Affect and Normal Mood Skin Skin Exam: Dry MDM Differential Diagnosis Differential Diagnosis: Bronchitis, Dysrhythmia, Hyponatremia, Mycardial Infarction, Pneumonia, Pneumothorax, Respiratory Insufficiency, Sinusitis and URI COURSE Treatment Treatment: SEE ORDERS. Consultation Consultation Comments: DISCUSSED PATIENT WITH DR. COLVIN. HE WILL ADMIT PATIENT. Education/Counseling Education/Counseling: Patient Educated On: Diagnosis ROR Labs Reviewed Laboratory Results Reviewed?: Yes Result Diagrams: 11/27/20 16:31 11/27/20 05:30 Laboratory: 11/19/20 14:10 Urine,[place] Urine Culture - Final Escherichia Coli WBC 6.3 X10^3/uL (3.6-10.0) 11/19/20 14:10 RBC 4.22 X10^6/uL (3.5-5.4) 11/19/20 14:10 Hgb 10.8 g/dL (12.0-16.0) L 11/19/20 14:10 Hct 34.1 % (36.0-47.0) L 11/19/20 14:10 MCV 80.9 fL (80.0-100.0) 11/19/20 14:10 MCH 25.6 pg (27.0-34.0) L 11/19/20 14:10 MCHC 31.7 g/dL (33.0-35.0) L 11/19/20 14:10 RDW 16.3 % (11.6-16.5) 11/19/20 14:10 Plt Count 430 X10^3/uL (150.0-450.0) 11/19/20 14:10 MPV 8.0 fL (7.4-11.0) 11/19/20 14:10 Neut % (Auto) 83.5 % (42.0-75.0) H 11/19/20 14:10 Lymph % (Auto) 7.7 % (21.0-51.0) L 11/19/20 14:10 [place] % (Auto) 8.6 % (0.0-13.0) 11/19/20 14:10 Eos % (Auto) 0.0 % (0.9-2.9) L 11/19/20 14:10 Baso % (Auto) 0.2 % (0.2-1.0) 11/19/20 14:10 Neut # (Auto) 5.3 x10^3/uL (2.2-4.8) H 11/19/20 14:10 Lymph # (Auto) 0.5 X10^3/uL (1.3-2.9) L 11/19/20 14:10 [place] # (Auto) 0.5 x10^3/uL (0.3-0.8) 11/19/20 14:10 Eos # (Auto) 0.0 x10^3/uL (0.0-0.2) 11/19/20 14:10 Baso # (Auto) 0.0 X10^3/uL (0.0-0.1) 11/19/20 14:10 Absolute Nucleated RBC 0.1 /100WBC 11/19/20 14:10 PT 19.1 SECONDS (11.8-14.3) 11/19/20 14:10 INR Target Range - 11/19/20 14:10 INR 1.65 (0.8-1.3) H 11/19/20 14:10 APTT 40.9 SECONDS (22.9-36.5) H 11/19/20 14:10 PTT Comment - 11/19/20 14:10 Sample Site Rr 11/19/20 14:05 ABG pH 7.490 (7.35-7.45) H 11/19/20 14:05 ABG pCO2 46.0 mmHg (35.0-45.0) H 11/19/20 14:05 ABG pO2 138.0 mmHg (80.0-100.0) H 11/19/20 14:05 ABG HCO3 35.1 mmol/L (22-26) H* 11/19/20 14:05 ABG O2 Saturation 99.0 % (90-100) 11/19/20 14:05 ABG Base Excess 10.4 mmol/L (-2.0-2.0) H 11/19/20 14:05 Rodrigo Test Pos 11/19/20 14:05 A-a Gradient 90.0 mmHg 11/19/20 14:05 FiO2 40 11/19/20 14:05 Blood Gas Comments Pt [facility] 11/19/20 14:05 Sodium 138 mmol/L (136-145) 11/19/20 14:10 Corrected Sodium 138 mmol/L (136-145) 11/19/20 14:10 Potassium 3.7 mmol/L (3.5-5.1) 11/19/20 14:10 Chloride 96 mmol/L (98-107) L 11/19/20 14:10 Carbon Dioxide 33.9 mmol/L (21-32) H 11/19/20 14:10 BUN 46 mg/dL (7-18) H 11/19/20 14:10 Creatinine 2.05 mg/dL (0.55-1.02) H 11/19/20 14:10 Est GFR (MDRD) Af Amer 30 (>60) L 11/19/20 14:10 Est GFR (MDRD) Non-Af 25 (>60) L 11/19/20 14:10 Glucose 114 mg/dL (65-99) H 11/19/20 14:10 Calcium 9.5 mg/dL (8.5-10.1) 11/19/20 14:10 Corrected Calcium 10.2 mg/dL (8.5-10.1) H 11/19/20 14:10 Total Bilirubin 1.20 mg/dL (0.2-1.0) H 11/19/20 14:10 AST 218 Units/L (15-37) H 11/19/20 14:10 ALT 82 Units/L (12-78) H 11/19/20 14:10 Alkaline Phosphatase 99 Units/L (46-116) 11/19/20 14:10 Creatine Kinase 73 Units/L (26-192) 11/19/20 16:40 CK-MB (CK-2) 3.1 ng/mL (0-4.0) 11/19/20 16:40 CK/CKMB % Calc 4.3 % (<4) 11/19/20 16:40 Troponin I 0.18 ng/mL (0-1.5) 11/19/20 16:40 B-Natriuretic Peptide 1550 pg/mL (0-79) H* 11/19/20 14:10 Total Protein 6.8 g/dL (6.4-8.2) 11/19/20 14:10 Albumin 3.1 g/dL (3.4-5.0) L 11/19/20 14:10 Globulin 3.7 g/dL (2.5-4.5) 11/19/20 14:10 Albumin/Globulin Ratio 0.8 Ratio (1.1-2.1) L 11/19/20 14:10 Specimen Type Catherized urine 11/19/20 14:10 Urine Color Yellow (YELLOW) 11/19/20 14:10 Urine Appearance Hazy (CLEAR) 11/19/20 14:10 Urine pH 5.0 (5.0 - 8.0) 11/19/20 14:10 Ur Specific [place] 1.025 (1.000-1.030) 11/19/20 14:10 Urine Protein 3+ (NEGATIVE) 11/19/20 14:10 Urine Glucose (UA) Negative (NEGATIVE) 11/19/20 14:10 Urine Ketones 1+ (NEGATIVE) 11/19/20 14:10 Urine Occult Blood 2+ (NEGATIVE) 11/19/20 14:10 Urine Nitrite Negative (NEGATIVE) 11/19/20 14:10 Urine Bilirubin 2+ (NEGATIVE) 11/19/20 14:10 Urine Urobilinogen 2+ (NORMAL) 11/19/20 14:10 Ur Leukocyte Esterase 1+ (NEGATIVE) 11/19/20 14:10 Urine RBC 0-2 /HPF (0-3) 11/19/20 14:10 Urine WBC 5-10 /HPF (0-5) A 11/19/20 14:10 Ur Squamous Epith Cells Few /HPF (NEGATIVE) 11/19/20 14:10 Ur Renal Epithelial Cell Few /HPF (NEGATIVE) 11/19/20 14:10 Amorphous Sediment 1+ /HPF (NEGATIVE) 11/19/20 14:10 Urine Bacteria 1+ /HPF (NEGATIVE) 11/19/20 14:10 Hyaline Casts Rare /LPF (NEGATIVE) 11/19/20 14:10 Urine Mucus Few /HPF (NEGATIVE) 11/19/20 14:10 Ur Culture Indicated? Yes/culture set up 11/19/20 14:10 SARS CoV-2 RNA Rapid WEI Negative (NEGATIVE) 11/19/20 15:56 XRAY XRAY Interpreted by: Radiologist (REPORT NOTED.) and Self EKG Rate: 82 [place]: Normal Rhythm: Afib Block: IVCD Hypertrophy: LAE ST: Nonsp Opioid Opioid Risk Tool Age ( box if 16-45): No History of Preadolescent Sexual Abuse: No Total: 0 Total Score Risk Category: Low Risk Copyright: [facility] predicting aberrant behaviors Diagnosis Discharge Problem: Acute respiratory distress, Acute UTI (urinary tract infection), Acute renal insufficiency Pneumonia Qualifiers: Pneumonia type: due to unspecified organism Laterality: bilateral Lung location: lower lobe of lung Qualified Code(s): J18.9 - Pneumonia, unspecified organism CHF (congestive heart failure) Qualifiers: Heart failure type: combined systolic and diastolic Heart failure chronicity: acute on chronic Qualified Code(s): I50.43 - Acute on chronic combined systolic (congestive) and diastolic (congestive) heart failure Instructions Instructions: Shortness of Breath, Adult, Xxdm-od-Rclm Edema Home Oxygen Use, Adult Hand Washing, Woct-fy-Clnu Upper Respiratory Infection, Adult, Mhcr-xr-Dosv Hypoxia Heart Failure Action Plan Type 2 Diabetes Mellitus, Self Care, Adult, Hofz-cq-Mvxe Chronic Obstructive Pulmonary Disease Exacerbation, Lsql-aj-Nqze Urinary Tract Infection, Adult, Gusb-on-Tief Form - COPD Action Plan Palliative Care Heart Failure, Tfpt-kx-Tqrb Hospice Community-Acquired Pneumonia, Adult, Yenv-qg-Qmul Forms: Precautions for COVID19 Patient Portal Social Distancing
[2020-11-19 13:40] VITALS: BMI 21.4
[2020-11-19] MEDS ORDERED: LASIX IVP ONE ×2 (13:49→13:55)
[2020-11-19 14:12] LABS: ABG BASE EXCESS 10.4 mmol/L (-2.0-2.0); ABG HCO3 35.1 mmol/L (22-26)
[2020-11-19 14:13] LABS: ABG ALLEN TEST POS
--- NOTE | 2020-11-19 14:35 | RAD ---
HISTORYShortness of breathSTUDYChest AP [id number]/06/2021FINDINGSPatient is rotated to the right. Patient is status post median st ernotomy and CABG. There is a pacemaker present on the right. Heart size difficult to assess due to o bscuration of the right heart border by diffuse infiltrate involving the lower 2/3 of the right lung and by a right pleural effusion. Findings are suggestive of pneumonia. The left lung demonstrates jt e peripheral infiltrate in the left midlung the remainder of the lung field is clear. Bony thorax is unremarkable.IMPRESSIONDiffuse infiltrate involving the lower 2/3 of the right lung most consistent w ith pneumoniaModerately large right pleural effusionPeripheral left midlung infiltrateElectronically signed by: KARELY MUKHERJEE (Nov 19, 2020 14:33:44)
[2020-11-19 14:42] LABS: BASOPHILS % (AUTO) 0.2 % (0.2-1.0); BILIRUBIN,URINE 2+ (NEGATIVE); BLOOD/HEMOGLOBIN,URINE 2+ (NEGATIVE); GLUCOSE, URINE NEGATIVE (NEGATIVE); HEMATOCRIT 34.1 % (36.0-47.0); HEMOGLOBIN 10.8 g/dL (12.0-16.0); KETONES,URINE 1+ (NEGATIVE); LEUKOCYTE ESTERASE ,URINE 1+ (NEGATIVE); LYMPHOCYTES # (AUTO) 0.5 X10^3/uL (1.3-2.9); LYMPHOCYTES % (AUTO) 7.7 % (21.0-51.0); MEAN CORPUSCULAR HEMOGLOBIN 25.6 pg (27.0-34.0); MEAN CORPUSCULAR HGB CONC 31.7 g/dL (33.0-35.0); MEAN CORPUSCULAR VOLUME 80.9 fL (80.0-100.0); MONOCYTES # (AUTO) 0.5 x10^3/uL (0.3-0.8); MONOCYTES % (AUTO) 8.6 % (0.0-13.0); NEUTROPHILS # (AUTO) 5.3 x10^3/uL (2.2-4.8); NEUTROPHILS % (AUTO) 83.5 % (42.0-75.0); NITRITES,URINE NEGATIVE (NEGATIVE); PLATELET COUNT 430 X10^3/uL (150.0-450.0); PROTEIN,URINE 3+ (NEGATIVE); RED BLOOD COUNT 4.22 X10^6/uL (3.5-5.4); RED CELL DISTRIBUTION WIDTH 16.3 % (11.6-16.5); UROBILINOGEN,URINE 2+ (NORMAL); WHITE BLOOD COUNT 6.3 X10^3/uL (3.6-10.0)
[2020-11-19 15:00] LABS: CALCIUM 9.5 mg/dL (8.5-10.1); CARBON DIOXIDE 33.9 mmol/L (21-32); CREATININE 2.05 mg/dL (0.55-1.02); TROPONIN I 0.17 ng/mL (0-1.5)
[2020-11-19 15:01] LABS: APPEARANCE,URINE HAZY (CLEAR); COLOR,URINE YELLOW (YELLOW)
[2020-11-19 15:02] LABS: AMORPHOUS SEDIMENT,UR 1+ /HPF (NEGATIVE); BACTERIA,URINE 1+ /HPF (NEGATIVE); RBC,URINE 0-2 /HPF (0-3); RENAL EPITHELIAL CELLS,URINE FEW /HPF (NEGATIVE); SQUAMOUS EPITHELIAL CELL,UR FEW /HPF (NEGATIVE)
[2020-11-19 15:03] LABS: HYALINE CASTS, URINE RARE /LPF (NEGATIVE); MUCUS,URINE FEW /HPF (NEGATIVE)
[2020-11-19 15:05] LABS: ALBUMIN 3.1 g/dL (3.4-5.0); CKMB % 4.1 % (<4); COR CA(FOR HYPOALB) 10.2 mg/dL (8.5-10.1); CREATINE KINASE MB 3.4 ng/mL (0-4.0); TOTAL PROTEIN 6.8 g/dL (6.4-8.2)
[2020-11-19] MEDS ORDERED: CONSULT PHARMACY - ANTIBIOTIC XX SCH (16:00)
[2020-11-19 17:34] LABS: CKMB % 4.3 % (<4); CREATINE KINASE MB 3.1 ng/mL (0-4.0); TROPONIN I 0.18 ng/mL (0-1.5)
[2020-11-19] MEDS ORDERED: LEVAQUIN PREMIX IV 500 MG 500 MG/100 ML BAG IV ONE ×2 (17:37→17:40)
[2020-11-19] MEDS ORDERED: NS 250 ML IV 250 ML IV ONE (17:38)
[2020-11-19 20:32] LABS: CKMB % 3.9 % (<4); CREATINE KINASE MB 2.9 ng/mL (0-4.0); TROPONIN I 0.18 ng/mL (0-1.5)
[2020-11-19] MEDS: ELIQUIS PO SCH (20:49)
[2020-11-19] MEDS: LIPITOR TAB 40 MG PO SCH (20:50)
[2020-11-19] MEDS ORDERED: FENOFIBRATE MICRONIZED 130 MG PO SCH (21:00)
[2020-11-19] MEDS ORDERED: GLUCOPHAGE PO SCH (21:00)
[2020-11-20 05:43] LABS: BASOPHILS % (AUTO) 0.4 % (0.2-1.0); EOSINOPHILS % (AUTO) 0.3 % (0.9-2.9); HEMATOCRIT 32.2 % (36.0-47.0); LYMPHOCYTES # (AUTO) 0.5 X10^3/uL (1.3-2.9); LYMPHOCYTES % (AUTO) 9.3 % (21.0-51.0); MEAN CORPUSCULAR HEMOGLOBIN 25.4 pg (27.0-34.0); MEAN CORPUSCULAR HGB CONC 31.1 g/dL (33.0-35.0); MEAN CORPUSCULAR VOLUME 81.5 fL (80.0-100.0); MEAN PLATELET VOLUME 7.9 fL (7.4-11.0); MONOCYTES # (AUTO) 0.6 x10^3/uL (0.3-0.8); MONOCYTES % (AUTO) 9.6 % (0.0-13.0); NEUTROPHILS # (AUTO) 4.7 x10^3/uL (2.2-4.8); NEUTROPHILS % (AUTO) 80.4 % (42.0-75.0); PLATELET COUNT 334 X10^3/uL (150.0-450.0); RED BLOOD COUNT 3.95 X10^6/uL (3.5-5.4); RED CELL DISTRIBUTION WIDTH 16.3 % (11.6-16.5); WHITE BLOOD COUNT 5.9 X10^3/uL (3.6-10.0)
[2020-11-20 05:43] LABS: BILIRUBIN,URINE NEGATIVE (NEGATIVE); BLOOD/HEMOGLOBIN,URINE 1+ (NEGATIVE); GLUCOSE, URINE NEGATIVE (NEGATIVE); KETONES,URINE 1+ (NEGATIVE); LEUKOCYTE ESTERASE ,URINE 2+ (NEGATIVE); NITRITES,URINE NEGATIVE (NEGATIVE); PROTEIN,URINE 2+ (NEGATIVE); UROBILINOGEN,URINE NORMAL (NORMAL)
[2020-11-20 05:45] LABS: APPEARANCE,URINE SLIGHTLY HAZY (CLEAR); COLOR,URINE YELLOW (YELLOW)
[2020-11-20 05:50] LABS: BACTERIA,URINE 2+ /HPF (NEGATIVE); HYALINE CASTS, URINE MANY /LPF (NEGATIVE); RBC,URINE 0-2 /HPF (0-3); SQUAMOUS EPITHELIAL CELL,UR NEGATIVE /HPF (NEGATIVE)
[2020-11-20 05:53] LABS: ALANINE AMINOTRANSFERASE 55 Units/L (12-78); ALBUMIN 2.6 g/dL (3.4-5.0); ALKALINE PHOSPHATASE 81 Units/L (46-116); ASPARTATE AMINO TRANSFERASE 136 Units/L (15-37); BLOOD UREA NITROGEN 45 mg/dL (7-18); CALCIUM 8.6 mg/dL (8.5-10.1); CARBON DIOXIDE 36.1 mmol/L (21-32); CHLORIDE 97 mmol/L (98-107); CHOLESTEROL 109 mg/dL (0-200); COR CA(FOR HYPOALB) 9.7 mg/dL (8.5-10.1); CREATININE 1.68 mg/dL (0.55-1.02); HDL CHOLESTEROL 36 mg/dL (40-60); MAGNESIUM 1.1 mg/dL (1.7-2.9); SODIUM 139 mmol/L (136-145); TRIGLYCERIDES 89 mg/dL (0-150); eGFR NON BLACK RACES 31 (>60)
[2020-11-20] MEDS ORDERED: PLAVIX ONE (08:24)
[2020-11-20] MEDS ORDERED: LASIX ONE (08:24)
[2020-11-20] MEDS ORDERED: K-DUR TAB 20 MEQ PO ONE (08:24)
[2020-11-20] MEDS ORDERED: PROTONIX TAB 40 MG PO ONE (08:24)
[2020-11-20] MEDS ORDERED: ELIQUIS ONE (08:25)
[2020-11-20] MEDS: ELIQUIS PO SCH ×2 (08:48→21:09)
[2020-11-20] MEDS: CORDARONE TAB 200 MG PO SCH (08:48)
[2020-11-20] MEDS: K-DUR TAB 20 MEQ PO SCH (08:49)
[2020-11-20] MEDS: LASIX IVP SCH ×2 (08:49→16:40)
[2020-11-20] MEDS: FOLIC ACID TAB 1 MG PO SCH (08:49)
[2020-11-20] MEDS: PROTONIX TAB 40 MG PO SCH (08:50)
[2020-11-20] MEDS: PLAVIX PO SCH (08:50)
[2020-11-20] MEDS: SYNTHROID 125 mcg TAB PO SCH (08:50)
[2020-11-20] MEDS: ULORIC PO SCH (08:52)
[2020-11-20] MEDS: TRICOR TAB 145 MG PO SCH (08:53)
[2020-11-20] MEDS: VITAMIN D3 125 mcg (5,000 UNITS) PO SCH (08:53)
[2020-11-20] MEDS: UNIPHYL TAB 400 MG 24-HR PO SCH (08:53)
[2020-11-20] MEDS: ALBUMIN HUMAN 25%- 100 ML 100 ML IV SCH (10:00)
[2020-11-20] MEDS ORDERED: K-DUR TAB 20 MEQ PO PRN (17:39)
[2020-11-20] MEDS ORDERED: POTASSIUM CHLORIDE LIQ 20 MEQ UDC PO PRN (17:39)
[2020-11-20] MEDS ORDERED: POTASSIUM CHL 60 MEQ/NS 0.45% 500 ML IV PRN (17:39)
[2020-11-20] MEDS ORDERED: POTASSIUM CHL 40 MEQ/NS 0.45% 500 ML IV PRN (17:39)
[2020-11-20] MEDS ORDERED: MICRO K EXTEN CAP 10 MEQ PO PRN (17:39)
[2020-11-20] MEDS ORDERED: K-RIDER 10 MEQ/NS 100 ML 10 MEQ/100 ML BAG IV PRN (17:39)
[2020-11-20] MEDS: MAGNESIUM SULFATE 1 GRAM/100 mL PREMIX 4 G/400 ML BAG IV SCH ×4 (18:14→23:09)
[2020-11-20] MEDS: KLOR-CON PO PRN (18:15)
[2020-11-20] MEDS ORDERED: NS 500 ML IV 500 ML IV ONE (21:05)
[2020-11-20] MEDS: LIPITOR TAB 40 MG PO SCH (21:09)
[2020-11-21] MEDS: KLOR-CON PO PRN (00:28)
[2020-11-21 06:11] LABS: BASOPHILS % (AUTO) 0.6 % (0.2-1.0); EOSINOPHILS % (AUTO) 0.7 % (0.9-2.9); HEMATOCRIT 31.6 % (36.0-47.0); LYMPHOCYTES # (AUTO) 0.6 X10^3/uL (1.3-2.9); LYMPHOCYTES % (AUTO) 8.8 % (21.0-51.0); MEAN CORPUSCULAR HEMOGLOBIN 25.5 pg (27.0-34.0); MEAN CORPUSCULAR HGB CONC 31.6 g/dL (33.0-35.0); MEAN CORPUSCULAR VOLUME 80.8 fL (80.0-100.0); MEAN PLATELET VOLUME 7.7 fL (7.4-11.0); MONOCYTES # (AUTO) 0.8 x10^3/uL (0.3-0.8); NEUTROPHILS # (AUTO) 5.4 x10^3/uL (2.2-4.8); NEUTROPHILS % (AUTO) 78.9 % (42.0-75.0); PLATELET COUNT 320 X10^3/uL (150.0-450.0); RED BLOOD COUNT 3.91 X10^6/uL (3.5-5.4); RED CELL DISTRIBUTION WIDTH 16.3 % (11.6-16.5); WHITE BLOOD COUNT 6.8 X10^3/uL (3.6-10.0)
[2020-11-21 06:40] LABS: ALBUMIN 3.1 g/dL (3.4-5.0); CARBON DIOXIDE 34.9 mmol/L (21-32); COR CA(FOR HYPOALB) 9.7 mg/dL (8.5-10.1); CREATININE 1.4 mg/dL (0.55-1.02); TOTAL PROTEIN 6.4 g/dL (6.4-8.2)
[2020-11-21] MEDS: ALBUMIN HUMAN 25%- 100 ML 100 ML IV SCH (09:03)
[2020-11-21] MEDS: PROTONIX TAB 40 MG PO SCH (09:07)
[2020-11-21] MEDS: PLAVIX PO SCH (09:08)
[2020-11-21] MEDS: ELIQUIS PO SCH ×2 (09:08→20:34)
[2020-11-21] MEDS: SYNTHROID 125 mcg TAB PO SCH (09:09)
[2020-11-21] MEDS: CORDARONE TAB 200 MG PO SCH (09:09)
[2020-11-21] MEDS: FOLIC ACID TAB 1 MG PO SCH (09:09)
[2020-11-21] MEDS: VITAMIN D3 125 mcg (5,000 UNITS) PO SCH (09:09)
[2020-11-21] MEDS: UNIPHYL TAB 400 MG 24-HR PO SCH (09:10)
[2020-11-21] MEDS: TRICOR TAB 145 MG PO SCH (09:11)
[2020-11-21] MEDS: K-DUR TAB 20 MEQ PO SCH (09:11)
[2020-11-21] MEDS: LASIX IVP SCH ×2 (09:26→18:03)
[2020-11-21] MEDS: ULORIC PO SCH (09:26)
[2020-11-21] MEDS ORDERED: LEVAQUIN PREMIX IV 500 MG 500 MG/100 ML BAG IV SCH (18:00)
[2020-11-21] MEDS: LIPITOR TAB 40 MG PO SCH (20:34)
[2020-11-22 06:23] LABS: BASOPHILS % (AUTO) 0.3 % (0.2-1.0); EOSINOPHILS % (AUTO) 0.4 % (0.9-2.9); HEMATOCRIT 32.2 % (36.0-47.0); LYMPHOCYTES # (AUTO) 0.5 X10^3/uL (1.3-2.9); LYMPHOCYTES % (AUTO) 8.2 % (21.0-51.0); MEAN CORPUSCULAR HEMOGLOBIN 25.4 pg (27.0-34.0); MEAN CORPUSCULAR HGB CONC 31.2 g/dL (33.0-35.0); MEAN CORPUSCULAR VOLUME 81.5 fL (80.0-100.0); MEAN PLATELET VOLUME 8.2 fL (7.4-11.0); MONOCYTES # (AUTO) 0.7 x10^3/uL (0.3-0.8); MONOCYTES % (AUTO) 10.4 % (0.0-13.0); NEUTROPHILS # (AUTO) 5.1 x10^3/uL (2.2-4.8); NEUTROPHILS % (AUTO) 80.7 % (42.0-75.0); PLATELET COUNT 259 X10^3/uL (150.0-450.0); RED BLOOD COUNT 3.95 X10^6/uL (3.5-5.4); RED CELL DISTRIBUTION WIDTH 16.1 % (11.6-16.5); WHITE BLOOD COUNT 6.4 X10^3/uL (3.6-10.0)
[2020-11-22 06:53] LABS: ALANINE AMINOTRANSFERASE 112 Units/L (12-78); ALBUMIN 3.5 g/dL (3.4-5.0); ALKALINE PHOSPHATASE 111 Units/L (46-116); ASPARTATE AMINO TRANSFERASE 252 Units/L (15-37); BLOOD UREA NITROGEN 38 mg/dL (7-18); CALCIUM 9.4 mg/dL (8.5-10.1); CARBON DIOXIDE 34.5 mmol/L (21-32); CHLORIDE 99 mmol/L (98-107); CREATININE 1.46 mg/dL (0.55-1.02); SODIUM 138 mmol/L (136-145); TOTAL PROTEIN 6.7 g/dL (6.4-8.2); eGFR NON BLACK RACES 37 (>60)
--- NOTE | 2020-11-22 07:43 | RAD ---
HISTORYFollow-up pneumoniaSTUDYChest AP [id number]/09/2021FINDINGSPatient is rotated to the right. There is a pacemaker present on the right. Patient is status post median sternotomy and CABG. Heart size remains difficult to assess due to obscuration of the right heart border by diffuse infiltrate involving the lower 2/3 of the rig ht lung with an associated pleural effusion. Pleural effusion has decreased slightly since the prior examination. Right apex is clear. Peripheral left lung infiltrates are unchanged. No left pleural eff usion is identified. Bony thorax is unremarkable.IMPRESSIONNo change right lung infiltrateSlight decr eased right pleural effusionNo change peripheral left lung infiltrateElectronically signed by: JOHNY MUKHERJEE (Nov 22, 2020 07:42:03)
[2020-11-22] MEDS ORDERED: ZOSYN VIAL 3.375 GRAMS 3.375 G in NS 100 ML IV + SPIKE MINIBAG* 100 ML IV SCH ×2 (08:10→18:00)
[2020-11-22] MEDS ORDERED: NS 100 ML IV 100 ML IV ONE (09:56)
[2020-11-22] MEDS: ALBUMIN HUMAN 25%- 100 ML 100 ML IV SCH (10:00)
[2020-11-22] MEDS: ELIQUIS PO SCH ×2 (10:03→21:02)
[2020-11-22] MEDS: VITAMIN D3 125 mcg (5,000 UNITS) PO SCH (10:05)
[2020-11-22] MEDS: FOLIC ACID TAB 1 MG PO SCH (10:05)
[2020-11-22] MEDS: PROTONIX TAB 40 MG PO SCH (10:05)
[2020-11-22] MEDS: CORDARONE TAB 200 MG PO SCH (10:06)
[2020-11-22] MEDS: ULORIC PO SCH (10:06)
[2020-11-22] MEDS: K-DUR TAB 20 MEQ PO SCH (10:07)
[2020-11-22] MEDS: SYNTHROID 125 mcg TAB PO SCH (10:08)
[2020-11-22] MEDS: PLAVIX PO SCH (10:09)
[2020-11-22] MEDS: UNIPHYL TAB 400 MG 24-HR PO SCH (10:10)
[2020-11-22] MEDS: FORTAZ or TAZICEF VIAL INJ 1 G in NS 100 ML IV + SPIKE MINIBAG* 100 ML IV SCH ×2 (11:38→21:03)
[2020-11-22] MEDS: TRICOR TAB 145 MG PO SCH (11:50)
[2020-11-22] MEDS: LASIX IVP SCH ×2 (11:50→17:31)
[2020-11-22] MEDS: LIPITOR TAB 40 MG PO SCH (21:02)
[2020-11-23 06:03] LABS: BASOPHILS % (AUTO) 0 % (0.2-1.0); HEMATOCRIT 31.8 % (36.0-47.0); HEMOGLOBIN 9.7 g/dL (12.0-16.0); LYMPHOCYTES # (AUTO) 0.5 X10^3/uL (1.3-2.9); LYMPHOCYTES % (AUTO) 4.4 % (21.0-51.0); MEAN CORPUSCULAR HEMOGLOBIN 24.7 pg (27.0-34.0); MEAN CORPUSCULAR HGB CONC 30.4 g/dL (33.0-35.0); MEAN CORPUSCULAR VOLUME 81.2 fL (80.0-100.0); MEAN PLATELET VOLUME 8.3 fL (7.4-11.0); MONOCYTES # (AUTO) 0.9 x10^3/uL (0.3-0.8); MONOCYTES % (AUTO) 7.7 % (0.0-13.0); NEUTROPHILS # (AUTO) 10.3 x10^3/uL (2.2-4.8); NEUTROPHILS % (AUTO) 87.9 % (42.0-75.0); PLATELET COUNT 244 X10^3/uL (150.0-450.0); RED BLOOD COUNT 3.92 X10^6/uL (3.5-5.4); RED CELL DISTRIBUTION WIDTH 16.8 % (11.6-16.5); WHITE BLOOD COUNT 11.7 X10^3/uL (3.6-10.0)
[2020-11-23 06:16] LABS: ALANINE AMINOTRANSFERASE 506 Units/L (12-78); ALBUMIN 3.7 g/dL (3.4-5.0); ALKALINE PHOSPHATASE 132 Units/L (46-116); BLOOD UREA NITROGEN 47 mg/dL (7-18); CALCIUM 9.4 mg/dL (8.5-10.1); CARBON DIOXIDE 28.7 mmol/L (21-32); CHLORIDE 97 mmol/L (98-107); CREATININE 1.79 mg/dL (0.55-1.02); SODIUM 138 mmol/L (136-145); TOTAL PROTEIN 6.7 g/dL (6.4-8.2); eGFR NON BLACK RACES 29 (>60)
[2020-11-23 06:29] LABS: ASPARTATE AMINO TRANSFERASE 2073 Units/L (15-37)
[2020-11-23] MEDS: GLYCOPYRROLATE FORMOTEROL IN SCH (09:07)
[2020-11-23] MEDS: K-DUR TAB 20 MEQ PO SCH (09:07)
[2020-11-23] MEDS: ELIQUIS PO SCH ×2 (09:07→20:43)
[2020-11-23] MEDS: CORDARONE TAB 200 MG PO SCH (09:07)
[2020-11-23] MEDS: FOLIC ACID TAB 1 MG PO SCH (09:07)
[2020-11-23] MEDS: PROTONIX TAB 40 MG PO SCH (09:08)
[2020-11-23] MEDS: UNIPHYL TAB 400 MG 24-HR PO SCH (09:08)
[2020-11-23] MEDS: SYNTHROID 125 mcg TAB PO SCH (09:08)
[2020-11-23] MEDS: PLAVIX PO SCH (09:08)
[2020-11-23] MEDS: VITAMIN D3 125 mcg (5,000 UNITS) PO SCH (09:08)
[2020-11-23] MEDS: ULORIC PO SCH (09:09)
[2020-11-23] MEDS: TRICOR TAB 145 MG PO SCH (09:09)
[2020-11-23] MEDS: LASIX IVP SCH ×2 (09:15→16:19)
[2020-11-23] MEDS: FORTAZ or TAZICEF VIAL INJ 1 G in NS 100 ML IV + SPIKE MINIBAG* 100 ML IV SCH ×2 (09:18→22:12)
[2020-11-23] MEDS: ALBUMIN HUMAN 25%- 100 ML 100 ML IV SCH (09:18)
[2020-11-23] MEDS ORDERED: NS 100 ML IV 100 ML IV ONE (09:22)
--- NOTE | 2020-11-23 12:29 | US ---
HISTORYelevated lft'sSTUDYABDOMEN USCOMPARISONNoneTECHNIQUEMultiple glass scale and color flow Doppler images of the abdomen were obtained.FINDINGSThe liver is normal in echotexture. No intraparenchymal mass or intrahepatic biliary ductal dilatation can be identified. The gallbladder is absent. The common bile duct is normal measuring 6 mm.The visualized portions of the pancreas and spleen are normal in their echotexture and size.The right and left kidney are mildly atrophic. The right kidney measures 12.0 x 4.6 x 4.7 cm. The left kidney measures 12.0 x 5.0 x 5.0 cm. No mass, hydronephrosis, or stone can be identified.The visualized portions of the abdominal aorta are normal in size without aneurysmal dilatation. The inferior vena cava is unremarkable as well.IMPRESSIONThe normal appearance of the liver. Mild bilateral renal atrophy.Electronically signed by: Severiano Wadsworth (Nov 23, 2020 12:28:05)
[2020-11-23] MEDS: LIPITOR TAB 40 MG PO SCH (20:43)
[2020-11-24] MEDS: GLYCOPYRROLATE FORMOTEROL IN SCH (08:32)
[2020-11-24] MEDS: FORTAZ or TAZICEF VIAL INJ 1 G in NS 100 ML IV + SPIKE MINIBAG* 100 ML IV SCH ×2 (08:33→20:48)
[2020-11-24] MEDS: ALBUMIN HUMAN 25%- 100 ML 100 ML IV SCH (08:33)
[2020-11-24] MEDS: SYNTHROID 125 mcg TAB PO SCH (08:34)
[2020-11-24] MEDS: VITAMIN D3 125 mcg (5,000 UNITS) PO SCH (08:34)
[2020-11-24] MEDS: PLAVIX PO SCH (08:34)
[2020-11-24] MEDS: ULORIC PO SCH (08:34)
[2020-11-24] MEDS: FOLIC ACID TAB 1 MG PO SCH (08:35)
[2020-11-24] MEDS: K-DUR TAB 20 MEQ PO SCH (08:35)
[2020-11-24] MEDS: CORDARONE TAB 200 MG PO SCH (08:35)
[2020-11-24] MEDS: UNIPHYL TAB 400 MG 24-HR PO SCH (08:35)
[2020-11-24] MEDS: ELIQUIS PO SCH ×2 (08:36→20:49)
[2020-11-24] MEDS: PROTONIX TAB 40 MG PO SCH (08:36)
[2020-11-24] MEDS: LASIX IVP SCH (08:36)
[2020-11-24] MEDS: TRICOR TAB 145 MG PO SCH (08:36)
[2020-11-24] MEDS ORDERED: BUTT CREAM (COMPOUND) TOP PRN (10:38)
[2020-11-24 11:09] LABS: BASOPHILS % (AUTO) 0.1 % (0.2-1.0); EOSINOPHILS % (AUTO) 0.1 % (0.9-2.9); HEMATOCRIT 31.6 % (36.0-47.0); HEMOGLOBIN 9.7 g/dL (12.0-16.0); LYMPHOCYTES # (AUTO) 0.4 X10^3/uL (1.3-2.9); LYMPHOCYTES % (AUTO) 3.4 % (21.0-51.0); MEAN CORPUSCULAR HEMOGLOBIN 24.8 pg (27.0-34.0); MEAN CORPUSCULAR HGB CONC 30.6 g/dL (33.0-35.0); MEAN CORPUSCULAR VOLUME 80.9 fL (80.0-100.0); MEAN PLATELET VOLUME 7.9 fL (7.4-11.0); MONOCYTES # (AUTO) 0.6 x10^3/uL (0.3-0.8); MONOCYTES % (AUTO) 5.9 % (0.0-13.0); NEUTROPHILS # (AUTO) 9.3 x10^3/uL (2.2-4.8); NEUTROPHILS % (AUTO) 90.5 % (42.0-75.0); PLATELET COUNT 258 X10^3/uL (150.0-450.0); RED BLOOD COUNT 3.91 X10^6/uL (3.5-5.4); RED CELL DISTRIBUTION WIDTH 16.6 % (11.6-16.5); WHITE BLOOD COUNT 10.3 X10^3/uL (3.6-10.0)
[2020-11-24 11:17] LABS: CALCIUM 8.8 mg/dL (8.5-10.1); CARBON DIOXIDE 32.5 mmol/L (21-32); CREATININE 1.33 mg/dL (0.55-1.02)
[2020-11-24 11:27] LABS: HYPOCHROMASIA SLIGHT; PLATELET MORPHOLOGY COMMENT NORMAL (NORMAL)
[2020-11-24] MEDS: KLOR-CON PO PRN (11:37)
[2020-11-24 12:15] LABS: ALBUMIN 4.1 g/dL (3.4-5.0); BILIRUBIN,DIRECT 1.5 mg/dL (0-0.2); TOTAL PROTEIN 6.6 g/dL (6.4-8.2)
[2020-11-24] MEDS: XANAX PO PRN (12:26)
[2020-11-24] MEDS: MAGNESIUM SULFATE 1 GRAM/100 mL PREMIX 1 GM/100 ML BAG IV PRN ×2 (13:24→14:46)
--- NOTE | 2020-11-24 15:03 | RAD ---
HISTORYabd pain, anorexia hx: cad, copd, dm.br stents, hysterectomy, thyroidectomySTUDYACUTE ABDOMEN [id number]/12/2021FINDINGSPatient is rotated. Sequelae of CABG. Cardiomegaly. Multifocal righ t lung opacities again seen. Patchy left base opacity. No visible pneumothorax or sizable effusion al though there could be a small right effusion. Dual lead pacemaker. Nonobstructive nonspecific bowel g as pattern. Suture material and pelvis. RUQ clips. Vascular calcifications. No visible free air.IMPRE SSIONRight worse than left bilateral pneumonia. Nonspecific bowel gas pattern.Electronically signed b y: Severiano Wadsworth (Nov 24, 2020 15:01:20)
[2020-11-24] MEDS: REMERON PO SCH (20:48)
[2020-11-24] MEDS: LIPITOR TAB 40 MG PO SCH (20:48)
--- NOTE | 2020-11-25 06:23 | RAD ---
HISTORYPneumoniaSTUDYCHEST, 1 [id number]/12/2021.TECHNIQUEAP view of the chestFINDINGSPost median sternotomy. Right chest wall cardiac device with leads in stable position. Similar appearance of right worse than left lung infiltrates. Blunted left costophrenic sulcus. Right costophrenic sulcus is obscured by hardware. No discernible pneumothorax.IMPRESSIONOverall no significant change. Stable bilateral pneumonia.Electronically signed by: Jaime Perry (Nov 25, 2020 06:21:53)
[2020-11-25 06:31] LABS: BASOPHILS % (AUTO) 0.2 % (0.2-1.0); EOSINOPHILS # (AUTO) 0.1 x10^3/uL (0.0-0.2); EOSINOPHILS % (AUTO) 0.7 % (0.9-2.9); HEMATOCRIT 31.4 % (36.0-47.0); HEMOGLOBIN 9.7 g/dL (12.0-16.0); LYMPHOCYTES # (AUTO) 0.5 X10^3/uL (1.3-2.9); LYMPHOCYTES % (AUTO) 4.8 % (21.0-51.0); MEAN CORPUSCULAR HEMOGLOBIN 24.9 pg (27.0-34.0); MEAN CORPUSCULAR HGB CONC 30.9 g/dL (33.0-35.0); MEAN CORPUSCULAR VOLUME 80.6 fL (80.0-100.0); MEAN PLATELET VOLUME 8.4 fL (7.4-11.0); MONOCYTES # (AUTO) 0.8 x10^3/uL (0.3-0.8); MONOCYTES % (AUTO) 7.6 % (0.0-13.0); NEUTROPHILS # (AUTO) 9.2 x10^3/uL (2.2-4.8); NEUTROPHILS % (AUTO) 86.7 % (42.0-75.0); PLATELET COUNT 232 X10^3/uL (150.0-450.0); RED BLOOD COUNT 3.89 X10^6/uL (3.5-5.4); RED CELL DISTRIBUTION WIDTH 16.7 % (11.6-16.5); WHITE BLOOD COUNT 10.6 X10^3/uL (3.6-10.0)
[2020-11-25 06:41] LABS: ALANINE AMINOTRANSFERASE 281 Units/L (12-78); ALBUMIN 3.6 g/dL (3.4-5.0); ALKALINE PHOSPHATASE 113 Units/L (46-116); ASPARTATE AMINO TRANSFERASE 435 Units/L (15-37); BLOOD UREA NITROGEN 46 mg/dL (7-18); CALCIUM 8.8 mg/dL (8.5-10.1); CARBON DIOXIDE 30.6 mmol/L (21-32); CHLORIDE 101 mmol/L (98-107); COR NA(FOR HYPERGLY) 139 mmol/L (136-145); CREATININE 1.27 mg/dL (0.55-1.02); MAGNESIUM 2.4 mg/dL (1.7-2.9); SODIUM 139 mmol/L (136-145); TOTAL PROTEIN 6.4 g/dL (6.4-8.2); eGFR NON BLACK RACES 43 (>60)
[2020-11-25] MEDS: ALBUMIN HUMAN 25%- 100 ML 100 ML IV SCH (09:05)
[2020-11-25] MEDS: UNIPHYL TAB 400 MG 24-HR PO SCH (09:10)
[2020-11-25] MEDS: ELIQUIS PO SCH ×2 (09:10→20:24)
[2020-11-25] MEDS: K-DUR TAB 20 MEQ PO SCH (09:35)
[2020-11-25] MEDS: ULORIC PO SCH (09:35)
[2020-11-25] MEDS: SYNTHROID 125 mcg TAB PO SCH (09:35)
[2020-11-25] MEDS: VITAMIN D3 125 mcg (5,000 UNITS) PO SCH (09:36)
[2020-11-25] MEDS: FOLIC ACID TAB 1 MG PO SCH (09:36)
[2020-11-25] MEDS: PROTONIX TAB 40 MG PO SCH (09:36)
[2020-11-25] MEDS: PLAVIX PO SCH (09:37)
[2020-11-25] MEDS: TRICOR TAB 145 MG PO SCH (09:37)
[2020-11-25] MEDS: CORDARONE TAB 200 MG PO SCH (09:37)
[2020-11-25] MEDS: GLYCOPYRROLATE FORMOTEROL IN SCH (10:00)
[2020-11-25] MEDS: FORTAZ or TAZICEF VIAL INJ 1 G in NS 100 ML IV + SPIKE MINIBAG* 100 ML IV SCH ×2 (10:00→20:24)
[2020-11-25] MEDS: LIPITOR TAB 40 MG PO SCH (20:24)
[2020-11-25] MEDS: REMERON PO SCH (21:09)
[2020-11-26] MEDS: XANAX PO PRN (04:30)
[2020-11-26 06:08] LABS: BASOPHILS % (AUTO) 0.1 % (0.2-1.0); EOSINOPHILS % (AUTO) 0.1 % (0.9-2.9); HEMATOCRIT 27.1 % (36.0-47.0); HEMOGLOBIN 8.4 g/dL (12.0-16.0); LYMPHOCYTES # (AUTO) 0.3 X10^3/uL (1.3-2.9); LYMPHOCYTES % (AUTO) 4.6 % (21.0-51.0); MEAN CORPUSCULAR HGB CONC 31.1 g/dL (33.0-35.0); MEAN CORPUSCULAR VOLUME 80.5 fL (80.0-100.0); MEAN PLATELET VOLUME 8.4 fL (7.4-11.0); MONOCYTES # (AUTO) 0.6 x10^3/uL (0.3-0.8); MONOCYTES % (AUTO) 9.1 % (0.0-13.0); NEUTROPHILS # (AUTO) 5.9 x10^3/uL (2.2-4.8); NEUTROPHILS % (AUTO) 86.1 % (42.0-75.0); PLATELET COUNT 147 X10^3/uL (150.0-450.0); RED BLOOD COUNT 3.37 X10^6/uL (3.5-5.4); RED CELL DISTRIBUTION WIDTH 16.7 % (11.6-16.5); WHITE BLOOD COUNT 6.9 X10^3/uL (3.6-10.0)
[2020-11-26 06:37] LABS: BLOOD UREA NITROGEN 54 mg/dL (7-18); CARBON DIOXIDE 31.9 mmol/L (21-32); CHLORIDE 103 mmol/L (98-107); SODIUM 144 mmol/L (136-145)
[2020-11-26 06:38] LABS: CALCIUM 8.8 mg/dL (8.5-10.1); CREATININE 1.54 mg/dL (0.55-1.02); eGFR NON BLACK RACES 34 (>60)
[2020-11-26 06:40] LABS: ALANINE AMINOTRANSFERASE 219 Units/L (12-78); ALBUMIN 3.3 g/dL (3.4-5.0); ALKALINE PHOSPHATASE 116 Units/L (46-116); ASPARTATE AMINO TRANSFERASE 319 Units/L (15-37); COR CA(FOR HYPOALB) 9.4 mg/dL (8.5-10.1)
[2020-11-26] MEDS: ALBUMIN HUMAN 25%- 100 ML 100 ML IV SCH (08:29)
[2020-11-26] MEDS: FORTAZ or TAZICEF VIAL INJ 1 G in NS 100 ML IV + SPIKE MINIBAG* 100 ML IV SCH ×2 (08:30→21:04)
[2020-11-26] MEDS: CORDARONE TAB 200 MG PO SCH (08:34)
[2020-11-26] MEDS: TRICOR TAB 145 MG PO SCH (08:35)
[2020-11-26] MEDS: ULORIC PO SCH (08:35)
[2020-11-26] MEDS: PROTONIX TAB 40 MG PO SCH (08:35)
[2020-11-26] MEDS: PLAVIX PO SCH (08:35)
[2020-11-26] MEDS: FOLIC ACID TAB 1 MG PO SCH (08:35)
[2020-11-26] MEDS: SYNTHROID 125 mcg TAB PO SCH (08:35)
[2020-11-26] MEDS: ELIQUIS PO SCH ×2 (08:36→21:03)
[2020-11-26] MEDS: K-DUR TAB 20 MEQ PO SCH (08:36)
[2020-11-26] MEDS: VITAMIN D3 125 mcg (5,000 UNITS) PO SCH (08:36)
[2020-11-26] MEDS: UNIPHYL TAB 400 MG 24-HR PO SCH (08:36)
[2020-11-26] MEDS: GLYCOPYRROLATE FORMOTEROL IN SCH (08:43)
[2020-11-26] MEDS ORDERED: LASIX IVP SCH (10:00)
[2020-11-26] MEDS ORDERED: NS 500 ML IV 500 ML IV ONE (11:35)
[2020-11-26] MEDS: LIPITOR TAB 40 MG PO SCH (21:02)
[2020-11-26] MEDS: REMERON PO SCH (21:03)
[2020-11-27] MEDS ORDERED: NS 1000 ML 1,000 ML ONE (00:01)
[2020-11-27] MEDS ORDERED: NS 500 ML IV 500 ML IV ONE (00:18)
[2020-11-27] MEDS: NS 1000 ML 1,000 ML IV SCH ×4 (05:46→22:56)
[2020-11-27 05:59] LABS: BASOPHILS % (AUTO) 0.1 % (0.2-1.0); EOSINOPHILS % (AUTO) 0.1 % (0.9-2.9); HEMATOCRIT 28.5 % (36.0-47.0); HEMOGLOBIN 8.7 g/dL (12.0-16.0); LYMPHOCYTES # (AUTO) 0.5 X10^3/uL (1.3-2.9); LYMPHOCYTES % (AUTO) 6.3 % (21.0-51.0); MEAN CORPUSCULAR HEMOGLOBIN 24.6 pg (27.0-34.0); MEAN CORPUSCULAR HGB CONC 30.5 g/dL (33.0-35.0); MEAN CORPUSCULAR VOLUME 80.9 fL (80.0-100.0); MEAN PLATELET VOLUME 8.8 fL (7.4-11.0); MONOCYTES # (AUTO) 0.8 x10^3/uL (0.3-0.8); MONOCYTES % (AUTO) 10.5 % (0.0-13.0); NEUTROPHILS # (AUTO) 6.1 x10^3/uL (2.2-4.8); PLATELET COUNT 132 X10^3/uL (150.0-450.0); RED BLOOD COUNT 3.52 X10^6/uL (3.5-5.4); RED CELL DISTRIBUTION WIDTH 17.1 % (11.6-16.5); WHITE BLOOD COUNT 7.3 X10^3/uL (3.6-10.0)
[2020-11-27 06:10] LABS: ALBUMIN 3.3 g/dL (3.4-5.0); CALCIUM 8.4 mg/dL (8.5-10.1); CARBON DIOXIDE 28.1 mmol/L (21-32); CREATININE 1.97 mg/dL (0.55-1.02); TOTAL PROTEIN 5.9 g/dL (6.4-8.2)
[2020-11-27] MEDS ORDERED: LASIX PO SCH (09:00)
[2020-11-27] MEDS: GLYCOPYRROLATE FORMOTEROL IN SCH (09:15)
[2020-11-27] MEDS: ALBUMIN HUMAN 25%- 100 ML 100 ML IV SCH (09:19)
[2020-11-27] MEDS: ELIQUIS PO SCH ×2 (09:24→20:08)
[2020-11-27] MEDS: FOLIC ACID TAB 1 MG PO SCH (09:24)
[2020-11-27] MEDS: UNIPHYL TAB 400 MG 24-HR PO SCH (09:24)
[2020-11-27] MEDS: VITAMIN D3 125 mcg (5,000 UNITS) PO SCH (09:24)
[2020-11-27] MEDS: PROTONIX TAB 40 MG PO SCH (09:24)
[2020-11-27] MEDS: SYNTHROID 125 mcg TAB PO SCH (09:24)
[2020-11-27] MEDS: FORTAZ or TAZICEF VIAL INJ 1 G in NS 100 ML IV + SPIKE MINIBAG* 100 ML IV SCH (09:28)
[2020-11-27] MEDS: K-DUR TAB 20 MEQ PO SCH (09:31)
[2020-11-27] MEDS: ULORIC PO SCH (09:32)
[2020-11-27] MEDS: CORDARONE TAB 200 MG PO SCH (09:42)
[2020-11-27] MEDS: PLAVIX PO SCH (09:43)
[2020-11-27] MEDS ORDERED: NS 250 ML IV 250 ML IV ONE (11:21)
[2020-11-27 16:47] LABS: HEMATOCRIT 33.7 % (36.0-47.0); HEMOGLOBIN 10.6 g/dL (12.0-16.0)
[2020-11-27] MEDS: LIPITOR TAB 40 MG PO SCH (20:08)
[2020-11-27] MEDS: REMERON PO SCH (20:10)
[2020-11-28] MEDS: NS 1000 ML 1,000 ML IV SCH ×2 (00:39→09:02)
[2020-11-28] MEDS: ALBUMIN HUMAN 25%- 100 ML 100 ML IV SCH (08:33)
[2020-11-28] MEDS: FORTAZ or TAZICEF VIAL INJ 1 G in NS 100 ML IV + SPIKE MINIBAG* 100 ML IV SCH (08:33)
[2020-11-28] MEDS: CORDARONE TAB 200 MG PO SCH (08:36)
[2020-11-28] MEDS: PROTONIX TAB 40 MG PO SCH (08:36)
[2020-11-28] MEDS: SYNTHROID 125 mcg TAB PO SCH (08:37)
[2020-11-28] MEDS: UNIPHYL TAB 400 MG 24-HR PO SCH (08:37)
[2020-11-28] MEDS: ELIQUIS PO SCH (08:37)
[2020-11-28] MEDS: FOLIC ACID TAB 1 MG PO SCH (08:37)
[2020-11-28] MEDS: PLAVIX PO SCH (08:37)
[2020-11-28] MEDS: VITAMIN D3 125 mcg (5,000 UNITS) PO SCH (08:37)
[2020-11-28] MEDS: ULORIC PO SCH (08:37)
[2020-11-28] MEDS: K-DUR TAB 20 MEQ PO SCH (08:42)
[2020-11-28] MEDS: GLYCOPYRROLATE FORMOTEROL IN SCH (08:49)
[2020-11-28 11:31] VITALS: BP 118/59
== END 2020-11-28 14:15 | disposition hospice, home (50) | DRG 194 ==
LOC: ER 13:20 → OBS 17:19 → MED/SURG 11-20 16:11
PROVIDERS: ADMIT Obstetrics & Gynecology Obstetrics; ATTEND Obstetrics & Gynecology Obstetrics
DX: B96.29 Other Escherichia coli [E. coli] as the cause of diseases classified elsewhere; R94.31 Abnormal electrocardiogram [ECG] [EKG]; R26.89 Other abnormalities of gait and mobility; J18.8 Other pneumonia, unspecified organism; J44.9 Chronic obstructive pulmonary disease, unspecified; I50.9 Heart failure, unspecified; E03.8 Other specified hypothyroidism; R94.5 Abnormal results of liver function studies; I25.10 Atherosclerotic heart disease of native coronary artery without angina pectoris; R79.1 Abnormal coagulation profile; Z20.822 Contact with and (suspected) exposure to COVID-19; E11.65 Type 2 diabetes mellitus with hyperglycemia; N39.0 Urinary tract infection, site not specified; E78.2 Mixed hyperlipidemia